=== PATIENT | male | born 1965 | race African-American/Black ===

== ENCOUNTER 2021-03-25 10:58 | Inpatient (IN) | payer OTHER ==
[2021-03-25 11:24] VITALS: BMI 21.4
[2021-03-25] MEDS ORDERED: MAGNESIUM CITRATE 300 ML BOTTLE PO PRN (12:03)
[2021-03-25] MEDS ORDERED: diazePAM 5 MG TABLET PO PRN (12:03)
[2021-03-25] MEDS ORDERED: ACETAMINOPHEN 325 MG TABLET (FP) PO PRN (12:03)
[2021-03-25] MEDS ORDERED: MAGNESIUM HYDROX 2400MG/30ML ORAL SUSPENSION 30 ML CUP PO PRN (12:03)
[2021-03-25] MEDS ORDERED: METHOCARBAMOL 500 MG TABLET PO PRN (12:03)
[2021-03-25] MEDS ORDERED: MAG HYDROX/AL HYDROX/SIMETH 30 ML UNIT-DOSE CUP PO PRN (12:03)
[2021-03-25] MEDS ORDERED: MENTHOL/PHENOL 1 EACH UD MM PRN (12:03)
[2021-03-25] MEDS ORDERED: BISMUTH SUBSALICYLATE 524 MG/30 ML PO PRN (12:03)
[2021-03-25] MEDS ORDERED: ONDANSETRON *ODT* 4 MG TABLET SL PRN (12:03)
[2021-03-25] MEDS: PRENATAL VITAMINS W/ FOLIC ACID TABLET (FP) PO SCH (13:25)
[2021-03-25] MEDS: diazePAM 5 MG TABLET PO SCH ×3 (13:26→22:35)
[2021-03-25] MEDS: NICOTINE POLACRILEX 4 MG GUM BUC PRN (13:30)
[2021-03-25] MEDS: hydrOXYzine PAMOATE 25 MG CAPSULE (FP) PO SCH ×3 (13:31→22:36)
[2021-03-25 17:19] LABS: HEMATOCRIT 38.7 % (35.4-49); HEMOGLOBIN 12.9 GM/dL (11.7-16.9); MCH 30.2 pg (25.7-33.7); MCHC 33.3 g/dl (32.0-35.9); MEAN CELL VOLUME 90.7 fl (80-96); MEAN PLT VOLUME 8.7 fl (7.5-11.1); PLATELET COUNT 263 10^3/uL (134-434); RBC 4.27 M/mm3 (4.00-5.60); RDW 13.3 % (11.9-15.9); WHITE BLOOD COUNT 12.2 K/mm3 (4.0-10.0)
[2021-03-25 17:23] LABS: CALCIUM 8.8 mg/dL (8.5-10.1)
[2021-03-25 17:24] LABS: ALBUMIN 3.9 g/dl (3.4-5.0); BLOOD UREA NITROGEN 21.8 mg/dL (7-18)
[2021-03-25 17:28] LABS: TOT PROT 7.2 g/dl (6.4-8.2)
[2021-03-25] MEDS: ACETAMINOPHEN 325 MG TABLET (FP) PO PRN (17:52)
[2021-03-25] MEDS: THIAMINE HCL 100 MG TABLET (FP) PO SCH (22:36)
[2021-03-25] MEDS: MELATONIN 5 MG TABLETS PO SCH (22:36)
[2021-03-26] MEDS: diazePAM 5 MG TABLET PO SCH ×4 (06:10→22:07)
[2021-03-26] MEDS: hydrOXYzine PAMOATE 25 MG CAPSULE (FP) PO SCH ×5 (06:11→22:05)
[2021-03-26] MEDS: PRENATAL VITAMINS W/ FOLIC ACID TABLET (FP) PO SCH (10:24)
[2021-03-26] MEDS: GABAPENTIN 300 MG CAPSULE PO SCH ×2 (13:25→22:05)
[2021-03-26] MEDS: IBUPROFEN 400 MG TABLET (FP) PO PRN ×2 (13:26→22:05)
[2021-03-26] MEDS: NICOTINE POLACRILEX 4 MG GUM BUC PRN ×3 (13:26→22:10)
[2021-03-26] MEDS: ACETAMINOPHEN 325 MG TABLET (FP) PO PRN (17:25)
[2021-03-26] MEDS: THIAMINE HCL 100 MG TABLET (FP) PO SCH (22:05)
[2021-03-26] MEDS: MELATONIN 5 MG TABLETS PO SCH (22:05)
[2021-03-26] MEDS: traZODone HCL 50 MG TABLET (FP) PO SCH (22:05)
[2021-03-27] MEDS: GABAPENTIN 300 MG CAPSULE PO SCH ×3 (05:02→22:12)
[2021-03-27] MEDS: diazePAM 5 MG TABLET PO SCH ×3 (05:02→22:12)
[2021-03-27] MEDS: hydrOXYzine PAMOATE 25 MG CAPSULE (FP) PO SCH ×5 (05:02→22:12)
[2021-03-27] MEDS ORDERED: MASKS NR ONE (05:04)
[2021-03-27] MEDS: IBUPROFEN 400 MG TABLET (FP) PO PRN ×2 (05:04→22:14)
[2021-03-27] MEDS: NICOTINE POLACRILEX 4 MG GUM BUC PRN ×4 (05:05→22:15)
[2021-03-27] MEDS: PRENATAL VITAMINS W/ FOLIC ACID TABLET (FP) PO SCH (10:27)
[2021-03-27 10:28] LABS: HEMATOCRIT 33.7 % (35.4-49); HEMOGLOBIN 11.1 GM/dL (11.7-16.9); MCH 30.4 pg (25.7-33.7); MEAN CELL VOLUME 92.1 fl (80-96); MEAN PLT VOLUME 8.7 fl (7.5-11.1); PLATELET COUNT 219 10^3/uL (134-434); RBC 3.66 M/mm3 (4.00-5.60); RDW 13.6 % (11.9-15.9); WHITE BLOOD COUNT 5.6 K/mm3 (4.0-10.0)
[2021-03-27] MEDS: traZODone HCL 50 MG TABLET (FP) PO SCH (22:12)
[2021-03-27] MEDS: MELATONIN 5 MG TABLETS PO SCH (22:12)
[2021-03-27] MEDS: THIAMINE HCL 100 MG TABLET (FP) PO SCH (22:12)
[2021-03-28] MEDS: NICOTINE POLACRILEX 4 MG GUM BUC PRN ×5 (05:29→22:08)
[2021-03-28] MEDS: diazePAM 5 MG TABLET PO SCH ×2 (05:29→17:47)
[2021-03-28] MEDS: GABAPENTIN 300 MG CAPSULE PO SCH ×3 (05:29→22:06)
[2021-03-28] MEDS: hydrOXYzine PAMOATE 25 MG CAPSULE (FP) PO SCH ×5 (05:40→22:06)
[2021-03-28] MEDS: PRENATAL VITAMINS W/ FOLIC ACID TABLET (FP) PO SCH (10:44)
[2021-03-28] MEDS: IBUPROFEN 400 MG TABLET (FP) PO PRN ×2 (10:47→22:07)
[2021-03-28] MEDS: traZODone HCL 50 MG TABLET (FP) PO SCH (22:06)
[2021-03-28] MEDS: MELATONIN 5 MG TABLETS PO SCH (22:06)
[2021-03-28] MEDS: THIAMINE HCL 100 MG TABLET (FP) PO SCH (22:06)
[2021-03-29] MEDS: NICOTINE POLACRILEX 4 MG GUM BUC PRN (04:59)
[2021-03-29] MEDS: IBUPROFEN 400 MG TABLET (FP) PO PRN (04:59)
[2021-03-29] MEDS: GABAPENTIN 300 MG CAPSULE PO SCH (05:00)
[2021-03-29] MEDS: hydrOXYzine PAMOATE 25 MG CAPSULE (FP) PO SCH (05:14)
[2021-03-29] MEDS ORDERED: diazePAM 5 MG TABLET PO ONE (06:00)
[2021-03-29 08:48] VITALS: BP 127/76; PULSE 73; TEMP 96.9
== END 2021-03-29 09:23 | disposition home or self-care (01) | DRG 774 ==
LOC: YASAS 10:58 → Y3N 12:14
PROVIDERS: ADMIT Allergy & Immunology; ATTEND Allergy & Immunology
PROC: HZ2ZZZZ Detoxification Services for Substance Abuse Treatment (ICD-10-PCS; principal; 2021-03-25)
DX: F10.230 Alcohol dependence with withdrawal, uncomplicated (principal); F14.20 Cocaine dependence, uncomplicated; F17.220 Nicotine dependence, chewing tobacco, uncomplicated; F25.9 Schizoaffective disorder, unspecified; F31.9 Bipolar disorder, unspecified; F43.10 Post-traumatic stress disorder, unspecified; G40.909 Epilepsy, unspecified, not intractable, without status epilepticus; G62.9 Polyneuropathy, unspecified; M17.0 Bilateral primary osteoarthritis of knee; M54.50 Low back pain, unspecified; G89.29 Other chronic pain; Z62.810 Personal history of physical and sexual abuse in childhood; Z98.890 Other specified postprocedural states; Z88.8 Allergy status to other drugs, medicaments and biological substances; Z91.013 Allergy to seafood
CPT/HCPCS: 36415; 80053; 84520; 85027; 86780; 93005; 93010; C9803; Q0162; U0003; U0005

== ENCOUNTER 2021-04-25 15:35 | Inpatient (IN) | payer OTHER ==
[2021-04-25] MEDS ORDERED: MAGNESIUM CITRATE 300 ML BOTTLE PO PRN (17:37)
[2021-04-25] MEDS ORDERED: LOPERAMIDE HCL 2 MG CAPSULE PO PRN (17:37)
[2021-04-25] MEDS ORDERED: P-EPHED 60MG/TRIPROLIDI 2.5MG TABLET PO PRN (17:37)
[2021-04-25] MEDS ORDERED: guaiFENesin 200 MG/10 ML 10 ML UNIT-DOSE CUPS PO PRN (17:37)
[2021-04-25] MEDS ORDERED: MAG HYDROX/AL HYDROX/SIMETH 30 ML UNIT-DOSE CUP PO PRN (17:37)
[2021-04-25] MEDS ORDERED: MAGNESIUM HYDROX 2400MG/30ML ORAL SUSPENSION 30 ML CUP PO PRN (17:37)
[2021-04-25] MEDS ORDERED: NICOTINE 10 MG CARTRIDGE (INHALER) IH PRN (17:37)
[2021-04-25] MEDS ORDERED: hydrOXYzine PAMOATE 25 MG CAPSULE (FP) PO PRN (17:37)
[2021-04-25 18:27] VITALS: BMI 25.8
[2021-04-25] MEDS: NICOTINE POLACRILEX 2 MG GUM BUC PRN (20:49)
[2021-04-25] MEDS: THIAMINE HCL 100 MG TABLET (FP) PO SCH (21:30)
[2021-04-25] MEDS: GABAPENTIN 300 MG CAPSULE PO SCH (21:31)
[2021-04-25] MEDS: IBUPROFEN 400 MG TABLET (FP) PO PRN (21:31)
[2021-04-25] MEDS ORDERED: MELATONIN 5 MG TABLETS PO SCH (22:00)
[2021-04-26] MEDS: GABAPENTIN 300 MG CAPSULE PO SCH ×3 (06:45→21:29)
[2021-04-26] MEDS: IBUPROFEN 400 MG TABLET (FP) PO PRN ×2 (06:46→21:28)
[2021-04-26] MEDS: NICOTINE 7 MG/24 HOURS TOPICAL PATCH TD SCH (10:08)
[2021-04-26] MEDS: NICOTINE POLACRILEX 2 MG GUM BUC PRN ×4 (10:08→21:29)
[2021-04-26] MEDS: PRENATAL VITAMINS W/ FOLIC ACID TABLET (FP) PO SCH (10:08)
[2021-04-26 10:30] LABS: PH,URINE 5.5 (5.0-8.0); URINE APPEARANCE CLEAR; URINE BILIRUBIN NEGATIVE (NEGATIVE); URINE COLOR YELLOW; URINE GLUCOSE (UA) NEGATIVE (NEGATIVE); URINE KETONE NEGATIVE (NEGATIVE); URINE LEUK ESTERASE NEGATIVE (NEGATIVE); URINE NITRITE NEGATIVE (NEGATIVE); URINE PROTEIN NEGATIVE (NEGATIVE); URINE UROBILINOGEN 0.2 mg/dL (0.2-1.0)
[2021-04-26 10:32] LABS: HEMATOCRIT 40.3 % (35.4-49); HEMOGLOBIN 13.7 GM/dL (11.7-16.9); MCH 30.4 pg (25.7-33.7); MEAN CELL VOLUME 89.2 fl (80-96); MEAN PLT VOLUME 8.6 fl (7.5-11.1); PLATELET COUNT 195 10^3/uL (134-434); RBC 4.52 M/mm3 (4.00-5.60)
[2021-04-26 10:34] LABS: CALCIUM 8.7 mg/dL (8.5-10.1)
[2021-04-26 10:35] LABS: ALBUMIN 4.1 g/dl (3.4-5.0); BLOOD UREA NITROGEN 26.1 mg/dL (7-18)
[2021-04-26 10:39] LABS: BILIRUBIN,TOTAL 0.6 mg/dL (0.2-1); TOT PROT 7.2 g/dl (6.4-8.2)
[2021-04-26] MEDS: THIAMINE HCL 100 MG TABLET (FP) PO SCH (21:27)
[2021-04-26] MEDS: QUEtiapine FUMARATE 50 MG TABLET PO PRN (21:28)
[2021-04-26] MEDS: traZODone HCL 100 MG TABLET (FP) PO SCH (21:28)
[2021-04-27] MEDS: GABAPENTIN 300 MG CAPSULE PO SCH ×3 (06:41→21:15)
[2021-04-27] MEDS: IBUPROFEN 400 MG TABLET (FP) PO PRN ×3 (06:42→21:18)
[2021-04-27] MEDS: NICOTINE POLACRILEX 2 MG GUM BUC PRN ×7 (06:43→21:19)
[2021-04-27] MEDS: NICOTINE 7 MG/24 HOURS TOPICAL PATCH TD SCH (09:47)
[2021-04-27] MEDS: PRENATAL VITAMINS W/ FOLIC ACID TABLET (FP) PO SCH (09:47)
[2021-04-27] MEDS: LIDOCAINE 5% TOPICAL PATCH TP SCH (14:28)
[2021-04-27] MEDS: THIAMINE HCL 100 MG TABLET (FP) PO SCH (21:15)
[2021-04-27] MEDS: traZODone HCL 100 MG TABLET (FP) PO SCH (21:15)
[2021-04-27] MEDS: LIDOCAINE PATCH REMOVAL MC SCH (21:16)
[2021-04-27] MEDS: QUEtiapine FUMARATE 50 MG TABLET PO PRN (21:18)
[2021-04-27] MEDS: METHOCARBAMOL 500 MG TABLET PO PRN (21:18)
[2021-04-28] MEDS: METHOCARBAMOL 500 MG TABLET PO PRN ×3 (06:29→21:57)
[2021-04-28] MEDS: IBUPROFEN 400 MG TABLET (FP) PO PRN ×2 (06:30→13:14)
[2021-04-28] MEDS: GABAPENTIN 300 MG CAPSULE PO SCH ×3 (06:30→21:56)
[2021-04-28] MEDS: NICOTINE POLACRILEX 2 MG GUM BUC PRN ×5 (06:31→18:20)
[2021-04-28] MEDS: PRENATAL VITAMINS W/ FOLIC ACID TABLET (FP) PO SCH (10:03)
[2021-04-28] MEDS: NICOTINE 7 MG/24 HOURS TOPICAL PATCH TD SCH (10:03)
[2021-04-28] MEDS: LIDOCAINE 5% TOPICAL PATCH TP SCH (10:04)
[2021-04-28] MEDS: traZODone HCL 100 MG TABLET (FP) PO SCH (21:57)
[2021-04-28] MEDS: QUEtiapine FUMARATE 50 MG TABLET PO PRN (21:58)
[2021-04-28] MEDS: LIDOCAINE PATCH REMOVAL MC SCH (21:59)
[2021-04-28] MEDS: THIAMINE HCL 100 MG TABLET (FP) PO SCH (21:59)
[2021-04-29] MEDS: GABAPENTIN 300 MG CAPSULE PO SCH ×3 (06:18→21:09)
[2021-04-29] MEDS: METHOCARBAMOL 500 MG TABLET PO PRN ×3 (06:19→21:10)
[2021-04-29] MEDS: NICOTINE POLACRILEX 2 MG GUM BUC PRN ×4 (06:20→21:11)
[2021-04-29] MEDS: IBUPROFEN 400 MG TABLET (FP) PO PRN ×2 (06:20→13:12)
[2021-04-29] MEDS ORDERED: MODERNA COVID-19 VACC,MRNA/PF 100 MCG/0.5 ML IM ONE (10:00)
[2021-04-29] MEDS: PRENATAL VITAMINS W/ FOLIC ACID TABLET (FP) PO SCH (10:39)
[2021-04-29] MEDS: LIDOCAINE 5% TOPICAL PATCH TP SCH (10:40)
[2021-04-29] MEDS: NICOTINE 7 MG/24 HOURS TOPICAL PATCH TD SCH (10:40)
[2021-04-29] MEDS: traZODone HCL 100 MG TABLET (FP) PO SCH (21:09)
[2021-04-29] MEDS: QUEtiapine FUMARATE 50 MG TABLET PO PRN (21:09)
[2021-04-29] MEDS: THIAMINE HCL 100 MG TABLET (FP) PO SCH (21:09)
[2021-04-29] MEDS: METHYL SALICYLATE/MENTHOL OINT 30 GM TUBE TP SCH (21:10)
[2021-04-29] MEDS: LIDOCAINE PATCH REMOVAL MC SCH (21:11)
[2021-04-30] MEDS: GABAPENTIN 300 MG CAPSULE PO SCH ×3 (06:31→21:31)
[2021-04-30] MEDS: METHOCARBAMOL 500 MG TABLET PO PRN ×3 (06:32→21:31)
[2021-04-30] MEDS: NICOTINE POLACRILEX 2 MG GUM BUC PRN ×6 (06:32→21:33)
[2021-04-30] MEDS: IBUPROFEN 400 MG TABLET (FP) PO PRN ×3 (06:33→21:32)
[2021-04-30] MEDS: LIDOCAINE 5% TOPICAL PATCH TP SCH (09:45)
[2021-04-30] MEDS: PRENATAL VITAMINS W/ FOLIC ACID TABLET (FP) PO SCH (09:45)
[2021-04-30] MEDS: NICOTINE 7 MG/24 HOURS TOPICAL PATCH TD SCH (09:45)
[2021-04-30] MEDS: traZODone HCL 100 MG TABLET (FP) PO SCH (21:31)
[2021-04-30] MEDS: QUEtiapine FUMARATE 50 MG TABLET PO PRN (21:31)
[2021-04-30] MEDS: METHYL SALICYLATE/MENTHOL OINT 30 GM TUBE TP SCH (21:31)
[2021-04-30] MEDS: THIAMINE HCL 100 MG TABLET (FP) PO SCH (21:31)
[2021-04-30] MEDS: LIDOCAINE PATCH REMOVAL MC SCH (21:33)
[2021-05-01] MEDS: GABAPENTIN 300 MG CAPSULE PO SCH ×3 (06:46→21:03)
[2021-05-01] MEDS: IBUPROFEN 400 MG TABLET (FP) PO PRN ×2 (10:23→21:04)
[2021-05-01] MEDS: METHOCARBAMOL 500 MG TABLET PO PRN ×3 (10:23→21:03)
[2021-05-01] MEDS: LIDOCAINE 5% TOPICAL PATCH TP SCH (10:25)
[2021-05-01] MEDS: NICOTINE POLACRILEX 2 MG GUM BUC PRN ×4 (10:31→21:04)
[2021-05-01] MEDS: NICOTINE 7 MG/24 HOURS TOPICAL PATCH TD SCH (12:41)
[2021-05-01] MEDS: PRENATAL VITAMINS W/ FOLIC ACID TABLET (FP) PO SCH (12:41)
[2021-05-01] MEDS: ACETAMINOPHEN 325 MG TABLET (FP) PO PRN (15:00)
[2021-05-01] MEDS: QUEtiapine FUMARATE 50 MG TABLET PO PRN (21:03)
[2021-05-01] MEDS: THIAMINE HCL 100 MG TABLET (FP) PO SCH (21:03)
[2021-05-01] MEDS: traZODone HCL 100 MG TABLET (FP) PO SCH (21:03)
[2021-05-01] MEDS: LIDOCAINE PATCH REMOVAL MC SCH (21:04)
[2021-05-01] MEDS: METHYL SALICYLATE/MENTHOL OINT 30 GM TUBE TP SCH (21:04)
[2021-05-02] MEDS: METHOCARBAMOL 500 MG TABLET PO PRN ×3 (06:38→21:45)
[2021-05-02] MEDS: GABAPENTIN 300 MG CAPSULE PO SCH ×3 (06:39→21:41)
[2021-05-02] MEDS: IBUPROFEN 400 MG TABLET (FP) PO PRN ×2 (06:39→14:04)
[2021-05-02] MEDS: NICOTINE POLACRILEX 2 MG GUM BUC PRN ×3 (06:39→16:54)
[2021-05-02] MEDS: NICOTINE 7 MG/24 HOURS TOPICAL PATCH TD SCH (09:27)
[2021-05-02] MEDS: LIDOCAINE 5% TOPICAL PATCH TP SCH (09:28)
[2021-05-02] MEDS: PRENATAL VITAMINS W/ FOLIC ACID TABLET (FP) PO SCH (09:28)
[2021-05-02] MEDS: THIAMINE HCL 100 MG TABLET (FP) PO SCH (21:41)
[2021-05-02] MEDS: METHYL SALICYLATE/MENTHOL OINT 30 GM TUBE TP SCH (21:41)
[2021-05-02] MEDS: traZODone HCL 100 MG TABLET (FP) PO SCH (21:41)
[2021-05-02] MEDS: LIDOCAINE PATCH REMOVAL MC SCH (21:41)
[2021-05-02] MEDS: QUEtiapine FUMARATE 50 MG TABLET PO PRN (21:43)
[2021-05-03] MEDS: IBUPROFEN 400 MG TABLET (FP) PO PRN (06:55)
[2021-05-03] MEDS: METHOCARBAMOL 500 MG TABLET PO PRN ×2 (06:56→21:33)
[2021-05-03] MEDS: NICOTINE POLACRILEX 2 MG GUM BUC PRN ×4 (06:56→21:34)
[2021-05-03] MEDS: GABAPENTIN 300 MG CAPSULE PO SCH ×3 (06:59→21:33)
[2021-05-03] MEDS: PRENATAL VITAMINS W/ FOLIC ACID TABLET (FP) PO SCH (09:56)
[2021-05-03] MEDS: NICOTINE 7 MG/24 HOURS TOPICAL PATCH TD SCH (09:56)
[2021-05-03] MEDS: LIDOCAINE 5% TOPICAL PATCH TP SCH (09:56)
[2021-05-03] MEDS: ACETAMINOPHEN 325 MG TABLET (FP) PO PRN (13:46)
[2021-05-03] MEDS: METHYL SALICYLATE/MENTHOL OINT 30 GM TUBE TP SCH (21:32)
[2021-05-03] MEDS: LIDOCAINE PATCH REMOVAL MC SCH (21:33)
[2021-05-03] MEDS: QUEtiapine FUMARATE 50 MG TABLET PO PRN (21:33)
[2021-05-03] MEDS: traZODone HCL 100 MG TABLET (FP) PO SCH (21:33)
[2021-05-03] MEDS: THIAMINE HCL 100 MG TABLET (FP) PO SCH (21:34)
[2021-05-04] MEDS: GABAPENTIN 300 MG CAPSULE PO SCH ×3 (07:36→21:01)
[2021-05-04] MEDS: LIDOCAINE 5% TOPICAL PATCH TP SCH (10:00)
[2021-05-04] MEDS: NICOTINE POLACRILEX 2 MG GUM BUC PRN ×6 (10:03→21:34)
[2021-05-04] MEDS: NICOTINE 7 MG/24 HOURS TOPICAL PATCH TD SCH (10:03)
[2021-05-04] MEDS: PRENATAL VITAMINS W/ FOLIC ACID TABLET (FP) PO SCH (10:05)
[2021-05-04] MEDS: METHOCARBAMOL 500 MG TABLET PO PRN ×2 (10:06→21:01)
[2021-05-04] MEDS: IBUPROFEN 400 MG TABLET (FP) PO PRN (10:06)
[2021-05-04] MEDS: ACETAMINOPHEN 325 MG TABLET (FP) PO PRN (13:39)
[2021-05-04] MEDS: QUEtiapine FUMARATE 50 MG TABLET PO PRN (21:01)
[2021-05-04] MEDS: THIAMINE HCL 100 MG TABLET (FP) PO SCH (21:01)
[2021-05-04] MEDS: traZODone HCL 100 MG TABLET (FP) PO SCH (21:01)
[2021-05-04] MEDS: LIDOCAINE PATCH REMOVAL MC SCH (21:02)
[2021-05-04] MEDS: METHYL SALICYLATE/MENTHOL OINT 30 GM TUBE TP SCH (21:02)
[2021-05-05] MEDS: GABAPENTIN 300 MG CAPSULE PO SCH ×3 (08:06→21:30)
[2021-05-05] MEDS: PRENATAL VITAMINS W/ FOLIC ACID TABLET (FP) PO SCH (10:12)
[2021-05-05] MEDS: METHOCARBAMOL 500 MG TABLET PO PRN ×2 (10:21→21:30)
[2021-05-05] MEDS: NICOTINE POLACRILEX 2 MG GUM BUC PRN ×4 (10:21→21:32)
[2021-05-05] MEDS: LIDOCAINE 5% TOPICAL PATCH TP SCH (10:23)
[2021-05-05] MEDS: NICOTINE 7 MG/24 HOURS TOPICAL PATCH TD SCH (10:23)
[2021-05-05] MEDS: IBUPROFEN 400 MG TABLET (FP) PO PRN (13:54)
[2021-05-05] MEDS: METHYL SALICYLATE/MENTHOL OINT 30 GM TUBE TP SCH (21:27)
[2021-05-05] MEDS: THIAMINE HCL 100 MG TABLET (FP) PO SCH (21:27)
[2021-05-05] MEDS: LIDOCAINE PATCH REMOVAL MC SCH (21:27)
[2021-05-05] MEDS: traZODone HCL 100 MG TABLET (FP) PO SCH (21:30)
[2021-05-05] MEDS: QUEtiapine FUMARATE 50 MG TABLET PO PRN (21:30)
[2021-05-06] MEDS: GABAPENTIN 300 MG CAPSULE PO SCH ×3 (06:28→21:02)
[2021-05-06] MEDS: LIDOCAINE 5% TOPICAL PATCH TP SCH (11:08)
[2021-05-06] MEDS: NICOTINE 7 MG/24 HOURS TOPICAL PATCH TD SCH (11:09)
[2021-05-06] MEDS: PRENATAL VITAMINS W/ FOLIC ACID TABLET (FP) PO SCH (11:10)
[2021-05-06] MEDS: IBUPROFEN 400 MG TABLET (FP) PO PRN (11:14)
[2021-05-06] MEDS: METHOCARBAMOL 500 MG TABLET PO PRN (11:14)
[2021-05-06] MEDS: NICOTINE POLACRILEX 2 MG GUM BUC PRN ×4 (13:48→21:04)
[2021-05-06] MEDS: traZODone HCL 100 MG TABLET (FP) PO SCH (21:01)
[2021-05-06] MEDS: METHYL SALICYLATE/MENTHOL OINT 30 GM TUBE TP SCH (21:01)
[2021-05-06] MEDS: QUEtiapine FUMARATE 50 MG TABLET PO PRN (21:02)
[2021-05-06] MEDS: LIDOCAINE PATCH REMOVAL MC SCH (21:02)
[2021-05-06] MEDS: THIAMINE HCL 100 MG TABLET (FP) PO SCH (21:03)
[2021-05-07] MEDS: GABAPENTIN 300 MG CAPSULE PO SCH ×3 (06:21→21:13)
[2021-05-07] MEDS: LIDOCAINE 5% TOPICAL PATCH TP SCH (09:39)
[2021-05-07] MEDS: IBUPROFEN 400 MG TABLET (FP) PO PRN ×2 (09:41→21:14)
[2021-05-07] MEDS: METHOCARBAMOL 500 MG TABLET PO PRN ×2 (09:41→21:13)
[2021-05-07] MEDS: PRENATAL VITAMINS W/ FOLIC ACID TABLET (FP) PO SCH (09:44)
[2021-05-07] MEDS: NICOTINE 7 MG/24 HOURS TOPICAL PATCH TD SCH (09:44)
[2021-05-07] MEDS: NICOTINE POLACRILEX 2 MG GUM BUC PRN ×5 (11:46→21:15)
[2021-05-07] MEDS: METHYL SALICYLATE/MENTHOL OINT 30 GM TUBE TP SCH (21:13)
[2021-05-07] MEDS: traZODone HCL 100 MG TABLET (FP) PO SCH (21:13)
[2021-05-07] MEDS: QUEtiapine FUMARATE 50 MG TABLET PO PRN (21:13)
[2021-05-07] MEDS: THIAMINE HCL 100 MG TABLET (FP) PO SCH (21:13)
[2021-05-07] MEDS: LIDOCAINE PATCH REMOVAL MC SCH (21:13)
[2021-05-08] MEDS: GABAPENTIN 300 MG CAPSULE PO SCH ×3 (06:26→21:28)
[2021-05-08] MEDS: IBUPROFEN 400 MG TABLET (FP) PO PRN ×2 (06:27→21:30)
[2021-05-08] MEDS: METHOCARBAMOL 500 MG TABLET PO PRN (06:28)
[2021-05-08] MEDS: LIDOCAINE 5% TOPICAL PATCH TP SCH (09:59)
[2021-05-08] MEDS: NICOTINE 7 MG/24 HOURS TOPICAL PATCH TD SCH (10:01)
[2021-05-08] MEDS: PRENATAL VITAMINS W/ FOLIC ACID TABLET (FP) PO SCH (10:02)
[2021-05-08] MEDS: NICOTINE POLACRILEX 2 MG GUM BUC PRN ×3 (10:04→14:19)
[2021-05-08] MEDS: traZODone HCL 100 MG TABLET (FP) PO SCH (21:28)
[2021-05-08] MEDS: QUEtiapine FUMARATE 50 MG TABLET PO PRN (21:30)
[2021-05-08] MEDS: LIDOCAINE PATCH REMOVAL MC SCH (21:31)
[2021-05-08] MEDS: METHYL SALICYLATE/MENTHOL OINT 30 GM TUBE TP SCH (21:31)
[2021-05-08] MEDS: THIAMINE HCL 100 MG TABLET (FP) PO SCH (21:32)
[2021-05-09] MEDS: IBUPROFEN 400 MG TABLET (FP) PO PRN (06:35)
[2021-05-09] MEDS: METHOCARBAMOL 500 MG TABLET PO PRN (06:35)
[2021-05-09] MEDS: GABAPENTIN 300 MG CAPSULE PO SCH (06:35)
[2021-05-09 06:46] VITALS: BP 116/62; PULSE 77; TEMP 98.6
== END 2021-05-09 09:20 | disposition home or self-care (01) | DRG 772 ==
LOC: YASAS 15:35 → Y3W 17:53
PROVIDERS: ADMIT Allergy & Immunology; ATTEND Allergy & Immunology
PROC: HZ42ZZZ Group Counseling for Substance Abuse Treatment, Cognitive-Behavioral (ICD-10-PCS; principal; 2021-04-25)
DX: F10.20 Alcohol dependence, uncomplicated (principal); F14.20 Cocaine dependence, uncomplicated; F13.20 Sedative, hypnotic or anxiolytic dependence, uncomplicated; F19.282 Other psychoactive substance dependence with psychoactive substance-induced sleep disorder; F19.24 Other psychoactive substance dependence with psychoactive substance-induced mood disorder; F31.9 Bipolar disorder, unspecified; F43.10 Post-traumatic stress disorder, unspecified; M17.11 Unilateral primary osteoarthritis, right knee; M19.011 Primary osteoarthritis, right shoulder; M54.50 Low back pain, unspecified; G89.29 Other chronic pain; Z62.810 Personal history of physical and sexual abuse in childhood; Z88.8 Allergy status to other drugs, medicaments and biological substances; Z91.013 Allergy to seafood; Z87.891 Personal history of nicotine dependence
CPT/HCPCS: 0011A; 36415; 80053; 81003; 85027; 86708; 86780; 86803; 87811; 91301; C9803; U0003; U0005

== ENCOUNTER 2021-06-19 13:01 | Inpatient (IN) | payer OTHER ==
[2021-06-19] MEDS ORDERED: ACETAMINOPHEN 325 MG TABLET (FP) PO PRN (15:29)
[2021-06-19] MEDS ORDERED: MAG HYDROX/AL HYDROX/SIMETH 30 ML UNIT-DOSE CUP PO PRN (15:29)
[2021-06-19] MEDS ORDERED: BISMUTH SUBSALICYLATE 524 MG/30 ML PO PRN (15:29)
[2021-06-19] MEDS ORDERED: ONDANSETRON *ODT* 4 MG TABLET SL PRN (15:29)
[2021-06-19] MEDS ORDERED: NICOTINE 10 MG CARTRIDGE (INHALER) IH PRN (15:29)
[2021-06-19] MEDS ORDERED: MENTHOL/PHENOL 1 EACH UD MM PRN (15:29)
[2021-06-19] MEDS ORDERED: MAGNESIUM HYDROX 2400MG/30ML ORAL SUSPENSION 30 ML CUP PO PRN (15:29)
[2021-06-19] MEDS ORDERED: MAGNESIUM CITRATE 300 ML BOTTLE PO PRN (15:29)
[2021-06-19] MEDS ORDERED: chlordiazePOXIDE HCL 25 MG CAPSULE PO PRN (15:29)
[2021-06-19] MEDS ORDERED: IBUPROFEN 400 MG TABLET (FP) PO PRN (15:29)
[2021-06-19] MEDS ORDERED: METHOCARBAMOL 500 MG TABLET PO PRN (15:29)
[2021-06-19 16:00] VITALS: BMI 30.4
[2021-06-19] MEDS: THIAMINE HCL 100 MG TABLET (FP) PO SCH (22:06)
[2021-06-19] MEDS: MELATONIN 5 MG TABLETS PO SCH (22:06)
[2021-06-19] MEDS: chlordiazePOXIDE HCL 25 MG CAPSULE PO SCH (22:06)
[2021-06-19] MEDS: ACETAMINOPHEN 325 MG TABLET (FP) PO PRN (22:08)
[2021-06-20] MEDS: chlordiazePOXIDE HCL 25 MG CAPSULE PO SCH ×4 (07:03→22:06)
[2021-06-20] MEDS: PRENATAL VITAMINS W/ FOLIC ACID TABLET (FP) PO SCH (11:14)
[2021-06-20 13:41] LABS: HEMATOCRIT 40.8 % (35.4-49); HEMOGLOBIN 13.6 GM/dL (11.7-16.9); MCH 29.7 pg (25.7-33.7); MCHC 33.3 g/dl (32.0-35.9); MEAN CELL VOLUME 89.1 fl (80-96); PLATELET COUNT 173 10^3/uL (134-434); RBC 4.59 M/mm3 (4.00-5.60); RDW 14.5 % (11.9-15.9); WHITE BLOOD COUNT 7.2 K/mm3 (4.0-10.0)
[2021-06-20 14:12] LABS: ALBUMIN 3.7 g/dl (3.4-5.0); CALCIUM 8.4 mg/dL (8.5-10.1)
[2021-06-20 14:13] LABS: BLOOD UREA NITROGEN 26.5 mg/dL (7-18)
[2021-06-20 14:17] LABS: BILIRUBIN,TOTAL 0.7 mg/dL (0.2-1); TOT PROT 6.4 g/dl (6.4-8.2)
[2021-06-20] MEDS ORDERED: NICOTINE POLACRILEX 2 MG GUM BUC PRN (21:33)
[2021-06-20] MEDS ORDERED: QUEtiapine FUMARATE 100 MG TABLET (FP) PO SCH (22:00)
[2021-06-20] MEDS: MELATONIN 5 MG TABLETS PO SCH (22:05)
[2021-06-20] MEDS: THIAMINE HCL 100 MG TABLET (FP) PO SCH ×2 (22:06→22:11)
[2021-06-20] MEDS: ACETAMINOPHEN 325 MG TABLET (FP) PO PRN (22:09)
[2021-06-21] MEDS: chlordiazePOXIDE HCL 25 MG CAPSULE PO SCH ×2 (05:44→10:38)
[2021-06-21 09:03] VITALS: BP 103/60; PULSE 73; TEMP 98
[2021-06-21] MEDS: PRENATAL VITAMINS W/ FOLIC ACID TABLET (FP) PO SCH (10:38)
[2021-06-22] MEDS ORDERED: chlordiazePOXIDE HCL 10 MG CAPSULE PO PRN
[2021-06-22] MEDS ORDERED: chlordiazePOXIDE HCL 10 MG CAPSULE PO SCH (05:00)
[2021-06-23] MEDS ORDERED: chlordiazePOXIDE HCL 10 MG CAPSULE PO SCH (05:00)
[2021-06-24] MEDS ORDERED: chlordiazePOXIDE HCL 10 MG CAPSULE PO ONE (05:00)
== END 2021-06-21 11:07 | disposition left against medical advice (07) | DRG 770 ==
LOC: YASAS 13:01 → Y6N 19:43
PROVIDERS: ADMIT Allergy & Immunology; ATTEND Allergy & Immunology
PROC: HZ2ZZZZ Detoxification Services for Substance Abuse Treatment (ICD-10-PCS; principal; 2021-06-19)
DX: F10.230 Alcohol dependence with withdrawal, uncomplicated (principal); F14.20 Cocaine dependence, uncomplicated; F13.20 Sedative, hypnotic or anxiolytic dependence, uncomplicated; F17.290 Nicotine dependence, other tobacco product, uncomplicated; F19.282 Other psychoactive substance dependence with psychoactive substance-induced sleep disorder; F19.24 Other psychoactive substance dependence with psychoactive substance-induced mood disorder; F31.9 Bipolar disorder, unspecified; G25.9 Extrapyramidal and movement disorder, unspecified; G62.9 Polyneuropathy, unspecified; M17.0 Bilateral primary osteoarthritis of knee; M54.50 Low back pain, unspecified; G89.29 Other chronic pain; Z62.810 Personal history of physical and sexual abuse in childhood; Z91.51 Personal history of suicidal behavior; Z59.00 Homelessness unspecified; Z88.8 Allergy status to other drugs, medicaments and biological substances; Z91.013 Allergy to seafood
CPT/HCPCS: 36415; 80053; 85027; 86780; C9803; U0003; U0005

== ENCOUNTER 2021-07-10 12:06 | Inpatient (IN) | payer OTHER ==
[2021-07-10] MEDS ORDERED: LOPERAMIDE HCL 2 MG CAPSULE PO PRN (12:28)
[2021-07-10] MEDS ORDERED: chlordiazePOXIDE HCL 25 MG CAPSULE PO PRN (12:28)
[2021-07-10] MEDS ORDERED: ONDANSETRON *ODT* 4 MG TABLET SL PRN (12:28)
[2021-07-10] MEDS ORDERED: NICOTINE 10 MG CARTRIDGE (INHALER) IH PRN (12:28)
[2021-07-10] MEDS ORDERED: IBUPROFEN 400 MG TABLET (FP) PO PRN (12:28)
[2021-07-10] MEDS ORDERED: MENTHOL/PHENOL 1 EACH UD MM PRN (12:28)
[2021-07-10] MEDS ORDERED: MAG HYDROX/AL HYDROX/SIMETH 30 ML UNIT-DOSE CUP PO PRN (12:28)
[2021-07-10] MEDS ORDERED: ACETAMINOPHEN 325 MG TABLET (FP) PO PRN (12:28)
[2021-07-10] MEDS ORDERED: MAGNESIUM CITRATE 300 ML BOTTLE PO PRN (12:28)
[2021-07-10] MEDS ORDERED: BISMUTH SUBSALICYLATE 524 MG/30 ML PO PRN (12:28)
[2021-07-10] MEDS ORDERED: MAGNESIUM HYDROX 2400MG/30ML ORAL SUSPENSION 30 ML CUP PO PRN (12:28)
[2021-07-10 12:37] VITALS: BMI 26.4
[2021-07-10] MEDS: chlordiazePOXIDE HCL 25 MG CAPSULE PO SCH ×3 (14:21→22:39)
[2021-07-10] MEDS: hydrOXYzine PAMOATE 25 MG CAPSULE (FP) PO SCH ×3 (14:21→22:39)
[2021-07-10] MEDS: ACETAMINOPHEN 325 MG TABLET (FP) PO PRN (14:22)
[2021-07-10] MEDS: PRENATAL VITAMINS W/ FOLIC ACID TABLET (FP) PO SCH (14:22)
[2021-07-10 17:01] LABS: HEMATOCRIT 36.2 % (35.4-49); HEMOGLOBIN 12.2 GM/dL (11.7-16.9); MCHC 33.7 g/dl (32.0-35.9); MEAN CELL VOLUME 88.9 fl (80-96); MEAN PLT VOLUME 8.3 fl (7.5-11.1); PLATELET COUNT 267 10^3/uL (134-434); RBC 4.07 M/mm3 (4.00-5.60); RDW 15.2 % (11.9-15.9); WHITE BLOOD COUNT 12.2 K/mm3 (4.0-10.0)
[2021-07-10 17:04] LABS: CALCIUM 8.9 mg/dL (8.5-10.1)
[2021-07-10 17:10] LABS: BILIRUBIN,TOTAL 0.4 mg/dL (0.2-1); TOT PROT 6.9 g/dl (6.4-8.2)
[2021-07-10] MEDS: GABAPENTIN 300 MG CAPSULE PO SCH ×2 (18:28→22:39)
[2021-07-10] MEDS ORDERED: GABAPENTIN 300 MG CAPSULE PO SCH (22:00)
[2021-07-10] MEDS ORDERED: MELATONIN 5 MG TABLETS PO SCH (22:00)
[2021-07-10] MEDS ORDERED: TICAGRELOR 90 MG TABLET PO ONE (22:00)
[2021-07-10] MEDS: THIAMINE HCL 100 MG TABLET (FP) PO SCH (22:39)
[2021-07-10] MEDS: QUEtiapine FUMARATE 100 MG TABLET (FP) PO SCH (22:39)
[2021-07-10] MEDS: ATORVASTATIN CA 40 MG TABLET (FP) PO SCH (22:39)
[2021-07-11] MEDS: GABAPENTIN 300 MG CAPSULE PO SCH ×3 (06:18→22:10)
[2021-07-11] MEDS: chlordiazePOXIDE HCL 25 MG CAPSULE PO SCH ×4 (06:18→22:17)
[2021-07-11] MEDS: hydrOXYzine PAMOATE 25 MG CAPSULE (FP) PO SCH ×5 (06:19→22:10)
[2021-07-11] MEDS: ASPIRIN 81 MG CHEWABLE TABLETS PO SCH (10:32)
[2021-07-11] MEDS: METHOCARBAMOL 500 MG TABLET PO PRN (10:32)
[2021-07-11] MEDS: PRENATAL VITAMINS W/ FOLIC ACID TABLET (FP) PO SCH (10:32)
[2021-07-11] MEDS: NICOTINE POLACRILEX 2 MG GUM BUC PRN ×2 (10:37→22:11)
[2021-07-11] MEDS: metoPROLOL SUCCINATE 25 MG TAB.SR.24H (FP) PO SCH (13:05)
[2021-07-11] MEDS: LOSARTAN POTASSIUM 25 MG TABLET PO SCH (13:05)
[2021-07-11] MEDS: ISOSORBIDE MONONITRATE 30 MG TAB.SR.24H (FP) PO SCH (13:07)
[2021-07-11] MEDS: LIDOCAINE 5% TOPICAL PATCH TP SCH (14:13)
[2021-07-11] MEDS ORDERED: guaiFENesin 200 MG/10 ML 10 ML UNIT-DOSE CUPS PO PRN (16:52)
[2021-07-11] MEDS: ACETAMINOPHEN 325 MG TABLET (FP) PO PRN (17:20)
[2021-07-11] MEDS: THIAMINE HCL 100 MG TABLET (FP) PO SCH (22:10)
[2021-07-11] MEDS: QUEtiapine FUMARATE 100 MG TABLET (FP) PO SCH (22:10)
[2021-07-11] MEDS: LIDOCAINE PATCH REMOVAL MC SCH (22:10)
[2021-07-11] MEDS: ATORVASTATIN CA 40 MG TABLET (FP) PO SCH (22:10)
[2021-07-12] MEDS: GABAPENTIN 300 MG CAPSULE PO SCH ×3 (06:25→22:45)
[2021-07-12] MEDS: hydrOXYzine PAMOATE 25 MG CAPSULE (FP) PO SCH ×5 (06:25→22:46)
[2021-07-12] MEDS: chlordiazePOXIDE HCL 25 MG CAPSULE PO SCH ×4 (06:25→22:46)
[2021-07-12] MEDS: NICOTINE POLACRILEX 2 MG GUM BUC PRN ×3 (06:27→22:50)
[2021-07-12] MEDS: LIDOCAINE 5% TOPICAL PATCH TP SCH (10:34)
[2021-07-12] MEDS: METHOCARBAMOL 500 MG TABLET PO PRN (10:34)
[2021-07-12] MEDS: ASPIRIN 81 MG CHEWABLE TABLETS PO SCH (10:34)
[2021-07-12] MEDS: PRENATAL VITAMINS W/ FOLIC ACID TABLET (FP) PO SCH (10:34)
[2021-07-12] MEDS: LOSARTAN POTASSIUM 25 MG TABLET PO SCH (10:35)
[2021-07-12] MEDS: metoPROLOL SUCCINATE 25 MG TAB.SR.24H (FP) PO SCH (10:36)
[2021-07-12] MEDS: ISOSORBIDE MONONITRATE 30 MG TAB.SR.24H (FP) PO SCH (10:37)
[2021-07-12 12:55] LABS: BASO % 0.7 % (0-2.0); EOS % 3.4 % (0-4.5); HEMATOCRIT 33.1 % (35.4-49); HEMOGLOBIN 11.2 GM/dL (11.7-16.9); LYMPH % 35.3 % (8-40); MCH 30.6 pg (25.7-33.7); MCHC 33.8 g/dl (32.0-35.9); MEAN CELL VOLUME 90.4 fl (80-96); MEAN PLT VOLUME 8.5 fl (7.5-11.1); MONO % 8.7 % (3.8-10.2); NEUT % 51.9 % (42.8-82.8); PLATELET COUNT 223 10^3/uL (134-434); RBC 3.66 M/mm3 (4.00-5.60); RDW 15.3 % (11.9-15.9); WHITE BLOOD COUNT 7.3 K/mm3 (4.0-10.0)
[2021-07-12 13:45] LABS: ANISOCYTOSIS 1+; MACROCYTOSIS 0
[2021-07-12 14:08] LABS: SARS-CoV-2 NAA Not Detected (Not Detected)
[2021-07-12] MEDS: ACETAMINOPHEN 325 MG TABLET (FP) PO PRN (17:36)
[2021-07-12] MEDS: LIDOCAINE PATCH REMOVAL MC SCH (22:46)
[2021-07-12] MEDS: THIAMINE HCL 100 MG TABLET (FP) PO SCH (22:46)
[2021-07-12] MEDS: QUEtiapine FUMARATE 100 MG TABLET (FP) PO SCH (22:46)
[2021-07-12] MEDS: ATORVASTATIN CA 40 MG TABLET (FP) PO SCH (22:46)
[2021-07-13] MEDS ORDERED: chlordiazePOXIDE HCL 10 MG CAPSULE PO PRN
[2021-07-13] MEDS: GABAPENTIN 300 MG CAPSULE PO SCH ×3 (07:34→22:45)
[2021-07-13] MEDS: chlordiazePOXIDE HCL 10 MG CAPSULE PO SCH ×4 (07:34→22:45)
[2021-07-13] MEDS: hydrOXYzine PAMOATE 25 MG CAPSULE (FP) PO SCH ×5 (07:34→22:45)
[2021-07-13] MEDS: METHOCARBAMOL 500 MG TABLET PO PRN (11:27)
[2021-07-13] MEDS: PRENATAL VITAMINS W/ FOLIC ACID TABLET (FP) PO SCH (11:27)
[2021-07-13] MEDS: LIDOCAINE 5% TOPICAL PATCH TP SCH (11:27)
[2021-07-13] MEDS: ASPIRIN 81 MG CHEWABLE TABLETS PO SCH (11:28)
[2021-07-13] MEDS: metoPROLOL SUCCINATE 25 MG TAB.SR.24H (FP) PO SCH (11:28)
[2021-07-13] MEDS: LOSARTAN POTASSIUM 25 MG TABLET PO SCH (11:28)
[2021-07-13] MEDS: ISOSORBIDE MONONITRATE 30 MG TAB.SR.24H (FP) PO SCH (11:29)
[2021-07-13] MEDS: NICOTINE POLACRILEX 2 MG GUM BUC PRN ×3 (11:32→20:17)
[2021-07-13] MEDS: ACETAMINOPHEN 325 MG TABLET (FP) PO PRN (17:45)
[2021-07-13] MEDS: ATORVASTATIN CA 40 MG TABLET (FP) PO SCH (22:44)
[2021-07-13] MEDS: THIAMINE HCL 100 MG TABLET (FP) PO SCH (22:45)
[2021-07-13] MEDS: QUEtiapine FUMARATE 100 MG TABLET (FP) PO SCH (22:45)
[2021-07-13] MEDS: LIDOCAINE PATCH REMOVAL MC SCH (22:47)
[2021-07-14] MEDS: GABAPENTIN 300 MG CAPSULE PO SCH ×3 (07:01→22:14)
[2021-07-14] MEDS: chlordiazePOXIDE HCL 10 MG CAPSULE PO SCH ×2 (07:01→17:54)
[2021-07-14] MEDS: hydrOXYzine PAMOATE 25 MG CAPSULE (FP) PO SCH ×5 (07:01→22:15)
[2021-07-14] MEDS: ASPIRIN 81 MG CHEWABLE TABLETS PO SCH (09:43)
[2021-07-14] MEDS: METHOCARBAMOL 500 MG TABLET PO PRN (09:43)
[2021-07-14] MEDS: PRENATAL VITAMINS W/ FOLIC ACID TABLET (FP) PO SCH (09:43)
[2021-07-14] MEDS: NICOTINE POLACRILEX 2 MG GUM BUC PRN ×2 (09:43→17:57)
[2021-07-14] MEDS: metoPROLOL SUCCINATE 25 MG TAB.SR.24H (FP) PO SCH (09:43)
[2021-07-14] MEDS: LIDOCAINE 5% TOPICAL PATCH TP SCH (09:43)
[2021-07-14] MEDS: LOSARTAN POTASSIUM 25 MG TABLET PO SCH (09:44)
[2021-07-14] MEDS: ISOSORBIDE MONONITRATE 30 MG TAB.SR.24H (FP) PO SCH (09:45)
[2021-07-14] MEDS: ACETAMINOPHEN 325 MG TABLET (FP) PO PRN (17:55)
[2021-07-14] MEDS ORDERED: QUEtiapine FUMARATE 200 MG TABLET PO SCH (22:00)
[2021-07-14] MEDS: ATORVASTATIN CA 40 MG TABLET (FP) PO SCH (22:14)
[2021-07-14] MEDS: THIAMINE HCL 100 MG TABLET (FP) PO SCH (22:15)
[2021-07-14] MEDS: LIDOCAINE PATCH REMOVAL MC SCH (22:16)
[2021-07-15] MEDS ORDERED: chlordiazePOXIDE HCL 10 MG CAPSULE PO ONE (05:00)
[2021-07-15] MEDS: hydrOXYzine PAMOATE 25 MG CAPSULE (FP) PO SCH ×4 (06:19→18:00)
[2021-07-15] MEDS: GABAPENTIN 300 MG CAPSULE PO SCH ×2 (06:21→15:09)
[2021-07-15] MEDS: NICOTINE POLACRILEX 2 MG GUM BUC PRN ×3 (06:21→18:01)
[2021-07-15] MEDS: PRENATAL VITAMINS W/ FOLIC ACID TABLET (FP) PO SCH (10:20)
[2021-07-15] MEDS: ASPIRIN 81 MG CHEWABLE TABLETS PO SCH (10:20)
[2021-07-15] MEDS: LOSARTAN POTASSIUM 25 MG TABLET PO SCH (10:21)
[2021-07-15] MEDS: metoPROLOL SUCCINATE 25 MG TAB.SR.24H (FP) PO SCH (10:21)
[2021-07-15] MEDS: ISOSORBIDE MONONITRATE 30 MG TAB.SR.24H (FP) PO SCH (10:21)
[2021-07-15] MEDS: METHOCARBAMOL 500 MG TABLET PO PRN (10:21)
[2021-07-15] MEDS: LIDOCAINE 5% TOPICAL PATCH TP SCH (10:23)
[2021-07-15 18:10] VITALS: BP 124/68; PULSE 96; TEMP 98.3
== END 2021-07-15 18:15 | disposition other institution (70) | DRG 774 ==
LOC: YASAS 12:06 → Y6N 12:39
PROVIDERS: ADMIT Allergy & Immunology; ATTEND Allergy & Immunology
PROC: HZ2ZZZZ Detoxification Services for Substance Abuse Treatment (ICD-10-PCS; principal; 2021-07-10)
DX: F10.230 Alcohol dependence with withdrawal, uncomplicated (principal); F14.20 Cocaine dependence, uncomplicated; F17.213 Nicotine dependence, cigarettes, with withdrawal; F25.9 Schizoaffective disorder, unspecified; F19.282 Other psychoactive substance dependence with psychoactive substance-induced sleep disorder; F19.24 Other psychoactive substance dependence with psychoactive substance-induced mood disorder; F43.10 Post-traumatic stress disorder, unspecified; E78.5 Hyperlipidemia, unspecified; G62.9 Polyneuropathy, unspecified; D72.829 Elevated white blood cell count, unspecified; I25.10 Atherosclerotic heart disease of native coronary artery without angina pectoris; I10 Essential (primary) hypertension; Z95.5 Presence of coronary angioplasty implant and graft; M17.0 Bilateral primary osteoarthritis of knee; R73.9 Hyperglycemia, unspecified; Z62.810 Personal history of physical and sexual abuse in childhood; Z86.19 Personal history of other infectious and parasitic diseases; Z59.00 Homelessness unspecified; Z88.8 Allergy status to other drugs, medicaments and biological substances; Z91.013 Allergy to seafood
CPT/HCPCS: 36415; 80053; 82962; 85025; 85027; 86780; C9803; U0003; U0005

== ENCOUNTER 2021-07-15 18:10 | Inpatient (IN) | payer OTHER ==
[~2021-07-15 18:10] MED LIST: LOPERAMIDE HCL 2 MG CAPSULE PO PRN; MAGNESIUM CITRATE 300 ML BOTTLE PO PRN; MAGNESIUM HYDROX 2400MG/30ML ORAL SUSPENSION 30 ML CUP PO PRN; NICOTINE 10 MG CARTRIDGE (INHALER) IH PRN; guaiFENesin 200 MG/10 ML 10 ML UNIT-DOSE CUPS PO PRN; hydrOXYzine PAMOATE 25 MG CAPSULE (FP) PO PRN
[2021-07-15] MEDS ORDERED: ATORVASTATIN CA 40 MG TABLET (FP) PO SCH (22:00)
[2021-07-15] MEDS: MELATONIN 5 MG TABLETS PO SCH (22:19)
[2021-07-15] MEDS: THIAMINE HCL 100 MG TABLET (FP) PO SCH (22:19)
[2021-07-15] MEDS: QUEtiapine FUMARATE 200 MG TABLET PO SCH (22:19)
[2021-07-15] MEDS: ATORVASTATIN CA 40 MG TABLET (FP) PO SCH (22:19)
[2021-07-15] MEDS: GABAPENTIN 300 MG CAPSULE PO SCH ×3 (22:19→22:21)
[2021-07-16] MEDS: GABAPENTIN 300 MG CAPSULE PO SCH ×3 (06:17→21:42)
[2021-07-16] MEDS: ASPIRIN 81 MG CHEWABLE TABLETS PO SCH (09:57)
[2021-07-16] MEDS: ISOSORBIDE MONONITRATE 30 MG TAB.SR.24H (FP) PO SCH (09:57)
[2021-07-16] MEDS: metoPROLOL SUCCINATE 25 MG TAB.SR.24H (FP) PO SCH (09:58)
[2021-07-16] MEDS: PRENATAL VITAMINS W/ FOLIC ACID TABLET (FP) PO SCH (09:58)
[2021-07-16] MEDS: LOSARTAN POTASSIUM 25 MG TABLET PO SCH (09:58)
[2021-07-16] MEDS: ACETAMINOPHEN 325 MG TABLET (FP) PO PRN ×2 (09:59→21:43)
[2021-07-16] MEDS: LIDOCAINE 5% TOPICAL PATCH TP SCH (13:08)
[2021-07-16] MEDS: NICOTINE POLACRILEX 2 MG GUM BUC PRN ×4 (13:08→22:19)
[2021-07-16] MEDS: THIAMINE HCL 100 MG TABLET (FP) PO SCH (21:42)
[2021-07-16] MEDS: MELATONIN 5 MG TABLETS PO SCH (21:42)
[2021-07-16] MEDS: QUEtiapine FUMARATE 200 MG TABLET PO SCH (21:42)
[2021-07-16] MEDS: ATORVASTATIN CA 40 MG TABLET (FP) PO SCH (21:43)
[2021-07-16] MEDS: LIDOCAINE PATCH REMOVAL MC SCH (21:44)
[2021-07-17] MEDS: GABAPENTIN 300 MG CAPSULE PO SCH ×3 (06:27→21:20)
[2021-07-17] MEDS: ACETAMINOPHEN 325 MG TABLET (FP) PO PRN ×3 (06:28→21:19)
[2021-07-17] MEDS: NICOTINE POLACRILEX 2 MG GUM BUC PRN ×6 (06:29→21:21)
[2021-07-17] MEDS: ASPIRIN 81 MG CHEWABLE TABLETS PO SCH (10:13)
[2021-07-17] MEDS: LOSARTAN POTASSIUM 25 MG TABLET PO SCH (10:13)
[2021-07-17] MEDS: ISOSORBIDE MONONITRATE 30 MG TAB.SR.24H (FP) PO SCH (10:14)
[2021-07-17] MEDS: metoPROLOL SUCCINATE 25 MG TAB.SR.24H (FP) PO SCH (10:14)
[2021-07-17] MEDS: LIDOCAINE 5% TOPICAL PATCH TP SCH (10:14)
[2021-07-17] MEDS: PRENATAL VITAMINS W/ FOLIC ACID TABLET (FP) PO SCH (10:15)
[2021-07-17] MEDS: MELATONIN 5 MG TABLETS PO SCH (21:18)
[2021-07-17] MEDS: THIAMINE HCL 100 MG TABLET (FP) PO SCH (21:18)
[2021-07-17] MEDS: LIDOCAINE PATCH REMOVAL MC SCH (21:20)
[2021-07-17] MEDS: ATORVASTATIN CA 40 MG TABLET (FP) PO SCH (21:20)
[2021-07-17] MEDS: QUEtiapine FUMARATE 200 MG TABLET PO SCH (21:20)
[2021-07-18] MEDS: GABAPENTIN 300 MG CAPSULE PO SCH ×3 (06:33→21:18)
[2021-07-18] MEDS: ASPIRIN 81 MG CHEWABLE TABLETS PO SCH (10:09)
[2021-07-18] MEDS: LOSARTAN POTASSIUM 25 MG TABLET PO SCH (10:09)
[2021-07-18] MEDS: ISOSORBIDE MONONITRATE 30 MG TAB.SR.24H (FP) PO SCH (10:10)
[2021-07-18] MEDS: PRENATAL VITAMINS W/ FOLIC ACID TABLET (FP) PO SCH (10:10)
[2021-07-18] MEDS: NICOTINE POLACRILEX 2 MG GUM BUC PRN ×3 (10:10→21:19)
[2021-07-18] MEDS: LIDOCAINE 5% TOPICAL PATCH TP SCH (10:10)
[2021-07-18] MEDS: metoPROLOL SUCCINATE 25 MG TAB.SR.24H (FP) PO SCH (10:10)
[2021-07-18] MEDS: ACETAMINOPHEN 325 MG TABLET (FP) PO PRN ×2 (10:11→21:17)
[2021-07-18] MEDS: MELATONIN 5 MG TABLETS PO SCH (21:17)
[2021-07-18] MEDS: THIAMINE HCL 100 MG TABLET (FP) PO SCH (21:17)
[2021-07-18] MEDS: ATORVASTATIN CA 40 MG TABLET (FP) PO SCH (21:18)
[2021-07-18] MEDS: QUEtiapine FUMARATE 200 MG TABLET PO SCH (21:18)
[2021-07-18] MEDS: LIDOCAINE PATCH REMOVAL MC SCH (21:38)
[2021-07-19] MEDS: NICOTINE POLACRILEX 2 MG GUM BUC PRN ×4 (06:38→18:00)
[2021-07-19] MEDS: GABAPENTIN 300 MG CAPSULE PO SCH ×3 (06:38→21:36)
[2021-07-19] MEDS: ACETAMINOPHEN 325 MG TABLET (FP) PO PRN ×3 (06:39→21:37)
[2021-07-19] MEDS ORDERED: MODERNA COVID-19 VACC,MRNA/PF 50 MCG/0.25 ML EACH IM ONE (10:00)
[2021-07-19] MEDS: LIDOCAINE 5% TOPICAL PATCH TP SCH (10:14)
[2021-07-19] MEDS: metoPROLOL SUCCINATE 25 MG TAB.SR.24H (FP) PO SCH (10:14)
[2021-07-19] MEDS: ASPIRIN 81 MG CHEWABLE TABLETS PO SCH (10:14)
[2021-07-19] MEDS: PRENATAL VITAMINS W/ FOLIC ACID TABLET (FP) PO SCH (10:15)
[2021-07-19] MEDS: ISOSORBIDE MONONITRATE 30 MG TAB.SR.24H (FP) PO SCH (10:15)
[2021-07-19] MEDS: LOSARTAN POTASSIUM 25 MG TABLET PO SCH (10:16)
[2021-07-19 14:08] LABS: SARS-CoV-2 NAA Not Detected (Not Detected)
[2021-07-19] MEDS: THIAMINE HCL 100 MG TABLET (FP) PO SCH (21:36)
[2021-07-19] MEDS: ATORVASTATIN CA 40 MG TABLET (FP) PO SCH (21:36)
[2021-07-19] MEDS: QUEtiapine FUMARATE 200 MG TABLET PO SCH (21:36)
[2021-07-19] MEDS: LIDOCAINE PATCH REMOVAL MC SCH (21:36)
[2021-07-19] MEDS: MELATONIN 5 MG TABLETS PO SCH (21:37)
[2021-07-20] MEDS: GABAPENTIN 300 MG CAPSULE PO SCH ×3 (06:41→21:15)
[2021-07-20] MEDS: NICOTINE POLACRILEX 2 MG GUM BUC PRN ×4 (06:42→17:03)
[2021-07-20] MEDS: ACETAMINOPHEN 325 MG TABLET (FP) PO PRN ×2 (06:42→21:17)
[2021-07-20] MEDS: LIDOCAINE 5% TOPICAL PATCH TP SCH (10:15)
[2021-07-20] MEDS: ISOSORBIDE MONONITRATE 30 MG TAB.SR.24H (FP) PO SCH (10:15)
[2021-07-20] MEDS: PRENATAL VITAMINS W/ FOLIC ACID TABLET (FP) PO SCH (10:15)
[2021-07-20] MEDS: LOSARTAN POTASSIUM 25 MG TABLET PO SCH (10:15)
[2021-07-20] MEDS: ASPIRIN 81 MG CHEWABLE TABLETS PO SCH (10:15)
[2021-07-20] MEDS: metoPROLOL SUCCINATE 25 MG TAB.SR.24H (FP) PO SCH (10:16)
[2021-07-20] MEDS: THIAMINE HCL 100 MG TABLET (FP) PO SCH (21:15)
[2021-07-20] MEDS: ATORVASTATIN CA 40 MG TABLET (FP) PO SCH (21:16)
[2021-07-20] MEDS: QUEtiapine FUMARATE 200 MG TABLET PO SCH (21:16)
[2021-07-20] MEDS: MELATONIN 5 MG TABLETS PO SCH (21:16)
[2021-07-20] MEDS: LIDOCAINE PATCH REMOVAL MC SCH (21:16)
[2021-07-21] MEDS: GABAPENTIN 300 MG CAPSULE PO SCH ×3 (06:57→21:39)
[2021-07-21] MEDS: ACETAMINOPHEN 325 MG TABLET (FP) PO PRN ×2 (06:57→21:40)
[2021-07-21] MEDS: NICOTINE POLACRILEX 2 MG GUM BUC PRN ×6 (07:00→21:41)
[2021-07-21] MEDS: metoPROLOL SUCCINATE 25 MG TAB.SR.24H (FP) PO SCH (09:45)
[2021-07-21] MEDS: LOSARTAN POTASSIUM 25 MG TABLET PO SCH (09:45)
[2021-07-21] MEDS: ASPIRIN 81 MG CHEWABLE TABLETS PO SCH (09:45)
[2021-07-21] MEDS: ISOSORBIDE MONONITRATE 30 MG TAB.SR.24H (FP) PO SCH (09:45)
[2021-07-21] MEDS: LIDOCAINE 5% TOPICAL PATCH TP SCH (09:46)
[2021-07-21] MEDS: PRENATAL VITAMINS W/ FOLIC ACID TABLET (FP) PO SCH (09:46)
[2021-07-21] MEDS: MELATONIN 5 MG TABLETS PO SCH (21:39)
[2021-07-21] MEDS: QUEtiapine FUMARATE 200 MG TABLET PO SCH (21:39)
[2021-07-21] MEDS: ATORVASTATIN CA 40 MG TABLET (FP) PO SCH (21:39)
[2021-07-21] MEDS: THIAMINE HCL 100 MG TABLET (FP) PO SCH (21:39)
[2021-07-21] MEDS: LIDOCAINE PATCH REMOVAL MC SCH (21:39)
[2021-07-22] MEDS: GABAPENTIN 300 MG CAPSULE PO SCH ×3 (06:51→21:12)
[2021-07-22] MEDS: ACETAMINOPHEN 325 MG TABLET (FP) PO PRN ×3 (06:52→21:13)
[2021-07-22] MEDS: LOSARTAN POTASSIUM 25 MG TABLET PO SCH (09:46)
[2021-07-22] MEDS: ASPIRIN 81 MG CHEWABLE TABLETS PO SCH (09:46)
[2021-07-22] MEDS: ISOSORBIDE MONONITRATE 30 MG TAB.SR.24H (FP) PO SCH (09:46)
[2021-07-22] MEDS: metoPROLOL SUCCINATE 25 MG TAB.SR.24H (FP) PO SCH (09:46)
[2021-07-22] MEDS: LIDOCAINE 5% TOPICAL PATCH TP SCH (09:46)
[2021-07-22] MEDS: PRENATAL VITAMINS W/ FOLIC ACID TABLET (FP) PO SCH (09:48)
[2021-07-22] MEDS: NICOTINE POLACRILEX 2 MG GUM BUC PRN ×3 (12:01→17:11)
[2021-07-22] MEDS: MELATONIN 5 MG TABLETS PO SCH (21:11)
[2021-07-22] MEDS: ATORVASTATIN CA 40 MG TABLET (FP) PO SCH (21:12)
[2021-07-22] MEDS: QUEtiapine FUMARATE 200 MG TABLET PO SCH (21:12)
[2021-07-22] MEDS: LIDOCAINE PATCH REMOVAL MC SCH (21:12)
[2021-07-22] MEDS: THIAMINE HCL 100 MG TABLET (FP) PO SCH (21:14)
[2021-07-23] MEDS: NICOTINE POLACRILEX 2 MG GUM BUC PRN ×5 (06:31→21:14)
[2021-07-23] MEDS: GABAPENTIN 300 MG CAPSULE PO SCH ×3 (06:31→21:15)
[2021-07-23] MEDS: ACETAMINOPHEN 325 MG TABLET (FP) PO PRN ×2 (06:32→21:15)
[2021-07-23] MEDS: PRENATAL VITAMINS W/ FOLIC ACID TABLET (FP) PO SCH (10:11)
[2021-07-23] MEDS: LIDOCAINE 5% TOPICAL PATCH TP SCH (10:11)
[2021-07-23] MEDS: ASPIRIN 81 MG CHEWABLE TABLETS PO SCH (10:11)
[2021-07-23] MEDS: LOSARTAN POTASSIUM 25 MG TABLET PO SCH (10:12)
[2021-07-23] MEDS: metoPROLOL SUCCINATE 25 MG TAB.SR.24H (FP) PO SCH (10:13)
[2021-07-23] MEDS: ISOSORBIDE MONONITRATE 30 MG TAB.SR.24H (FP) PO SCH (10:15)
[2021-07-23] MEDS: IBUPROFEN 400 MG TABLET (FP) PO PRN (10:17)
[2021-07-23] MEDS: LIDOCAINE HCL 5% TOP OINTMENT 50 GM TUBE TP SCH (16:56)
[2021-07-23] MEDS: LIDOCAINE PATCH REMOVAL MC SCH (21:13)
[2021-07-23] MEDS: MELATONIN 5 MG TABLETS PO SCH (21:14)
[2021-07-23] MEDS: THIAMINE HCL 100 MG TABLET (FP) PO SCH (21:15)
[2021-07-23] MEDS: ATORVASTATIN CA 40 MG TABLET (FP) PO SCH (21:15)
[2021-07-23] MEDS: QUEtiapine FUMARATE 200 MG TABLET PO SCH (21:15)
[2021-07-24] MEDS: ACETAMINOPHEN 325 MG TABLET (FP) PO PRN ×2 (06:44→13:11)
[2021-07-24] MEDS: GABAPENTIN 300 MG CAPSULE PO SCH ×3 (06:44→21:36)
[2021-07-24] MEDS: NICOTINE POLACRILEX 2 MG GUM BUC PRN ×6 (06:44→21:37)
[2021-07-24] MEDS: IBUPROFEN 400 MG TABLET (FP) PO PRN (10:11)
[2021-07-24] MEDS: ASPIRIN 81 MG CHEWABLE TABLETS PO SCH (10:12)
[2021-07-24] MEDS: ISOSORBIDE MONONITRATE 30 MG TAB.SR.24H (FP) PO SCH (10:12)
[2021-07-24] MEDS: LOSARTAN POTASSIUM 25 MG TABLET PO SCH (10:12)
[2021-07-24] MEDS: LIDOCAINE 5% TOPICAL PATCH TP SCH (10:13)
[2021-07-24] MEDS: metoPROLOL SUCCINATE 25 MG TAB.SR.24H (FP) PO SCH (10:13)
[2021-07-24] MEDS: PRENATAL VITAMINS W/ FOLIC ACID TABLET (FP) PO SCH (10:13)
[2021-07-24] MEDS: LIDOCAINE HCL 5% TOP OINTMENT 50 GM TUBE TP SCH (10:13)
[2021-07-24] MEDS: LIDOCAINE PATCH REMOVAL MC SCH (21:35)
[2021-07-24] MEDS: THIAMINE HCL 100 MG TABLET (FP) PO SCH (21:36)
[2021-07-24] MEDS: QUEtiapine FUMARATE 200 MG TABLET PO SCH (21:36)
[2021-07-24] MEDS: MELATONIN 5 MG TABLETS PO SCH (21:36)
[2021-07-24] MEDS: ATORVASTATIN CA 40 MG TABLET (FP) PO SCH (21:36)
[2021-07-25] MEDS: NICOTINE POLACRILEX 2 MG GUM BUC PRN ×5 (06:22→17:20)
[2021-07-25] MEDS: ACETAMINOPHEN 325 MG TABLET (FP) PO PRN ×2 (06:22→21:13)
[2021-07-25] MEDS: GABAPENTIN 300 MG CAPSULE PO SCH ×3 (06:22→21:12)
[2021-07-25] MEDS: ASPIRIN 81 MG CHEWABLE TABLETS PO SCH (09:28)
[2021-07-25] MEDS: metoPROLOL SUCCINATE 25 MG TAB.SR.24H (FP) PO SCH (09:29)
[2021-07-25] MEDS: LOSARTAN POTASSIUM 25 MG TABLET PO SCH (09:29)
[2021-07-25] MEDS: LIDOCAINE HCL 5% TOP OINTMENT 50 GM TUBE TP SCH (09:29)
[2021-07-25] MEDS: ISOSORBIDE MONONITRATE 30 MG TAB.SR.24H (FP) PO SCH (09:29)
[2021-07-25] MEDS: PRENATAL VITAMINS W/ FOLIC ACID TABLET (FP) PO SCH (09:29)
[2021-07-25] MEDS: LIDOCAINE 5% TOPICAL PATCH TP SCH (09:29)
[2021-07-25] MEDS: MAG HYDROX/AL HYDROX/SIMETH 30 ML UNIT-DOSE CUP PO PRN ×2 (09:30→21:12)
[2021-07-25] MEDS: METHOCARBAMOL 500 MG TABLET PO PRN (10:30)
[2021-07-25] MEDS: IBUPROFEN 400 MG TABLET (FP) PO PRN (14:09)
[2021-07-25] MEDS: QUEtiapine FUMARATE 200 MG TABLET PO SCH (21:12)
[2021-07-25] MEDS: MELATONIN 5 MG TABLETS PO SCH (21:12)
[2021-07-25] MEDS: THIAMINE HCL 100 MG TABLET (FP) PO SCH (21:12)
[2021-07-25] MEDS: ATORVASTATIN CA 40 MG TABLET (FP) PO SCH (21:13)
[2021-07-25] MEDS: LIDOCAINE PATCH REMOVAL MC SCH (21:13)
[2021-07-26] MEDS: GABAPENTIN 300 MG CAPSULE PO SCH ×3 (06:37→21:49)
[2021-07-26] MEDS: MAG HYDROX/AL HYDROX/SIMETH 30 ML UNIT-DOSE CUP PO PRN (06:37)
[2021-07-26] MEDS: NICOTINE POLACRILEX 2 MG GUM BUC PRN ×5 (06:37→21:50)
[2021-07-26] MEDS: ACETAMINOPHEN 325 MG TABLET (FP) PO PRN ×2 (06:38→21:49)
[2021-07-26] MEDS: LIDOCAINE 5% TOPICAL PATCH TP SCH (09:23)
[2021-07-26] MEDS: ASPIRIN 81 MG CHEWABLE TABLETS PO SCH (09:23)
[2021-07-26] MEDS: PRENATAL VITAMINS W/ FOLIC ACID TABLET (FP) PO SCH (09:23)
[2021-07-26] MEDS: ISOSORBIDE MONONITRATE 30 MG TAB.SR.24H (FP) PO SCH (09:25)
[2021-07-26] MEDS: metoPROLOL SUCCINATE 25 MG TAB.SR.24H (FP) PO SCH (09:25)
[2021-07-26] MEDS: LOSARTAN POTASSIUM 25 MG TABLET PO SCH (09:25)
[2021-07-26] MEDS: IBUPROFEN 400 MG TABLET (FP) PO PRN (14:16)
[2021-07-26] MEDS: LIDOCAINE PATCH REMOVAL MC SCH (21:48)
[2021-07-26] MEDS: ATORVASTATIN CA 40 MG TABLET (FP) PO SCH (21:49)
[2021-07-26] MEDS: THIAMINE HCL 100 MG TABLET (FP) PO SCH (21:49)
[2021-07-26] MEDS: QUEtiapine FUMARATE 200 MG TABLET PO SCH (21:49)
[2021-07-26] MEDS: MELATONIN 5 MG TABLETS PO SCH (21:49)
[2021-07-26] MEDS: METHOCARBAMOL 500 MG TABLET PO PRN (21:50)
[2021-07-27] MEDS: ACETAMINOPHEN 325 MG TABLET (FP) PO PRN ×2 (07:04→21:29)
[2021-07-27] MEDS: GABAPENTIN 300 MG CAPSULE PO SCH ×3 (07:04→21:28)
[2021-07-27] MEDS: ISOSORBIDE MONONITRATE 30 MG TAB.SR.24H (FP) PO SCH (10:05)
[2021-07-27] MEDS: ASPIRIN 81 MG CHEWABLE TABLETS PO SCH (10:05)
[2021-07-27] MEDS: LOSARTAN POTASSIUM 25 MG TABLET PO SCH (10:05)
[2021-07-27] MEDS: metoPROLOL SUCCINATE 25 MG TAB.SR.24H (FP) PO SCH (10:06)
[2021-07-27] MEDS: NICOTINE POLACRILEX 2 MG GUM BUC PRN ×5 (10:06→21:30)
[2021-07-27] MEDS: PRENATAL VITAMINS W/ FOLIC ACID TABLET (FP) PO SCH (10:06)
[2021-07-27] MEDS: LIDOCAINE 5% TOPICAL PATCH TP SCH (10:06)
[2021-07-27] MEDS: METHOCARBAMOL 500 MG TABLET PO PRN ×2 (10:07→21:28)
[2021-07-27] MEDS: MELATONIN 5 MG TABLETS PO SCH (21:28)
[2021-07-27] MEDS: ATORVASTATIN CA 40 MG TABLET (FP) PO SCH (21:28)
[2021-07-27] MEDS: THIAMINE HCL 100 MG TABLET (FP) PO SCH (21:28)
[2021-07-27] MEDS: QUEtiapine FUMARATE 200 MG TABLET PO SCH (21:28)
[2021-07-27] MEDS: LIDOCAINE PATCH REMOVAL MC SCH (21:29)
[2021-07-28] MEDS: GABAPENTIN 300 MG CAPSULE PO SCH ×3 (06:59→21:09)
[2021-07-28] MEDS: ACETAMINOPHEN 325 MG TABLET (FP) PO PRN ×2 (06:59→21:09)
[2021-07-28] MEDS: NICOTINE POLACRILEX 2 MG GUM BUC PRN ×6 (07:00→21:10)
[2021-07-28] MEDS: METHOCARBAMOL 500 MG TABLET PO PRN (09:54)
[2021-07-28] MEDS: ASPIRIN 81 MG CHEWABLE TABLETS PO SCH (09:54)
[2021-07-28] MEDS: IBUPROFEN 400 MG TABLET (FP) PO PRN (09:54)
[2021-07-28] MEDS: LOSARTAN POTASSIUM 25 MG TABLET PO SCH (09:54)
[2021-07-28] MEDS: PRENATAL VITAMINS W/ FOLIC ACID TABLET (FP) PO SCH (09:55)
[2021-07-28] MEDS: metoPROLOL SUCCINATE 25 MG TAB.SR.24H (FP) PO SCH (09:55)
[2021-07-28] MEDS: ISOSORBIDE MONONITRATE 30 MG TAB.SR.24H (FP) PO SCH (09:55)
[2021-07-28] MEDS: LIDOCAINE 5% TOPICAL PATCH TP SCH (09:55)
[2021-07-28] MEDS: MELATONIN 5 MG TABLETS PO SCH (21:08)
[2021-07-28] MEDS: THIAMINE HCL 100 MG TABLET (FP) PO SCH (21:09)
[2021-07-28] MEDS: QUEtiapine FUMARATE 200 MG TABLET PO SCH (21:09)
[2021-07-28] MEDS: ATORVASTATIN CA 40 MG TABLET (FP) PO SCH (21:09)
[2021-07-28] MEDS: LIDOCAINE PATCH REMOVAL MC SCH (21:56)
[2021-07-29] MEDS: ACETAMINOPHEN 325 MG TABLET (FP) PO PRN ×2 (06:47→21:43)
[2021-07-29] MEDS: GABAPENTIN 300 MG CAPSULE PO SCH ×3 (06:47→21:43)
[2021-07-29] MEDS: NICOTINE POLACRILEX 2 MG GUM BUC PRN ×5 (06:49→17:44)
[2021-07-29] MEDS: LIDOCAINE 5% TOPICAL PATCH TP SCH (10:07)
[2021-07-29] MEDS: ASPIRIN 81 MG CHEWABLE TABLETS PO SCH (10:08)
[2021-07-29] MEDS: METHOCARBAMOL 500 MG TABLET PO PRN (10:08)
[2021-07-29] MEDS: LOSARTAN POTASSIUM 25 MG TABLET PO SCH (10:08)
[2021-07-29] MEDS: ISOSORBIDE MONONITRATE 30 MG TAB.SR.24H (FP) PO SCH (10:09)
[2021-07-29] MEDS: IBUPROFEN 400 MG TABLET (FP) PO PRN (10:09)
[2021-07-29] MEDS: metoPROLOL SUCCINATE 25 MG TAB.SR.24H (FP) PO SCH (10:09)
[2021-07-29] MEDS: PRENATAL VITAMINS W/ FOLIC ACID TABLET (FP) PO SCH (10:09)
[2021-07-29] MEDS: THIAMINE HCL 100 MG TABLET (FP) PO SCH (21:42)
[2021-07-29] MEDS: LIDOCAINE PATCH REMOVAL MC SCH (21:43)
[2021-07-29] MEDS: QUEtiapine FUMARATE 200 MG TABLET PO SCH (21:43)
[2021-07-29] MEDS: ATORVASTATIN CA 40 MG TABLET (FP) PO SCH (21:43)
[2021-07-29] MEDS: MELATONIN 5 MG TABLETS PO SCH (21:44)
[2021-07-30] MEDS: ACETAMINOPHEN 325 MG TABLET (FP) PO PRN ×2 (06:28→12:54)
[2021-07-30] MEDS: NICOTINE POLACRILEX 2 MG GUM BUC PRN ×4 (06:31→21:43)
[2021-07-30] MEDS: GABAPENTIN 300 MG CAPSULE PO SCH ×3 (06:52→21:42)
[2021-07-30] MEDS: ASPIRIN 81 MG CHEWABLE TABLETS PO SCH (09:59)
[2021-07-30] MEDS: METHOCARBAMOL 500 MG TABLET PO PRN (10:00)
[2021-07-30] MEDS: IBUPROFEN 400 MG TABLET (FP) PO PRN ×2 (10:02→21:41)
[2021-07-30] MEDS: LIDOCAINE 5% TOPICAL PATCH TP SCH (10:02)
[2021-07-30] MEDS: PRENATAL VITAMINS W/ FOLIC ACID TABLET (FP) PO SCH (10:03)
[2021-07-30] MEDS: ISOSORBIDE MONONITRATE 30 MG TAB.SR.24H (FP) PO SCH (10:37)
[2021-07-30] MEDS: metoPROLOL SUCCINATE 25 MG TAB.SR.24H (FP) PO SCH (10:37)
[2021-07-30] MEDS: LOSARTAN POTASSIUM 25 MG TABLET PO SCH (10:37)
[2021-07-30] MEDS: MAG HYDROX/AL HYDROX/SIMETH 30 ML UNIT-DOSE CUP PO PRN (12:51)
[2021-07-30] MEDS ORDERED: ISOSORBIDE MONONITRATE 30 MG TAB.SR.24H (FP) PO ONE (13:40)
[2021-07-30] MEDS ORDERED: LOSARTAN POTASSIUM 25 MG TABLET PO ONE (13:45)
[2021-07-30] MEDS ORDERED: metoPROLOL SUCCINATE 25 MG TAB.SR.24H (FP) PO ONE (16:02)
[2021-07-30] MEDS: THIAMINE HCL 100 MG TABLET (FP) PO SCH (21:41)
[2021-07-30] MEDS: MELATONIN 5 MG TABLETS PO SCH (21:41)
[2021-07-30] MEDS: QUEtiapine FUMARATE 200 MG TABLET PO SCH (21:42)
[2021-07-30] MEDS: ATORVASTATIN CA 40 MG TABLET (FP) PO SCH (21:42)
[2021-07-30] MEDS: LIDOCAINE PATCH REMOVAL MC SCH (21:43)
[2021-07-31] MEDS: GABAPENTIN 300 MG CAPSULE PO SCH ×3 (06:38→21:42)
[2021-07-31] MEDS: ACETAMINOPHEN 325 MG TABLET (FP) PO PRN ×2 (06:38→21:41)
[2021-07-31] MEDS: NICOTINE POLACRILEX 2 MG GUM BUC PRN ×6 (06:39→21:44)
[2021-07-31] MEDS: PRENATAL VITAMINS W/ FOLIC ACID TABLET (FP) PO SCH (10:09)
[2021-07-31] MEDS: ASPIRIN 81 MG CHEWABLE TABLETS PO SCH (10:09)
[2021-07-31] MEDS: metoPROLOL SUCCINATE 25 MG TAB.SR.24H (FP) PO SCH (10:10)
[2021-07-31] MEDS: LOSARTAN POTASSIUM 25 MG TABLET PO SCH (10:11)
[2021-07-31] MEDS: METHOCARBAMOL 500 MG TABLET PO PRN (10:12)
[2021-07-31] MEDS: ISOSORBIDE MONONITRATE 30 MG TAB.SR.24H (FP) PO SCH (10:12)
[2021-07-31] MEDS: IBUPROFEN 400 MG TABLET (FP) PO PRN ×2 (10:12→17:22)
[2021-07-31] MEDS: LIDOCAINE 5% TOPICAL PATCH TP SCH (10:14)
[2021-07-31] MEDS: THIAMINE HCL 100 MG TABLET (FP) PO SCH (21:42)
[2021-07-31] MEDS: QUEtiapine FUMARATE 200 MG TABLET PO SCH (21:42)
[2021-07-31] MEDS: LIDOCAINE PATCH REMOVAL MC SCH (21:42)
[2021-07-31] MEDS: ATORVASTATIN CA 40 MG TABLET (FP) PO SCH (21:42)
[2021-07-31] MEDS: MELATONIN 5 MG TABLETS PO SCH (21:42)
[2021-08-01] MEDS: ACETAMINOPHEN 325 MG TABLET (FP) PO PRN (06:33)
[2021-08-01] MEDS: GABAPENTIN 300 MG CAPSULE PO SCH ×3 (06:33→21:12)
[2021-08-01] MEDS: NICOTINE POLACRILEX 2 MG GUM BUC PRN ×5 (06:34→17:11)
[2021-08-01] MEDS: METHOCARBAMOL 500 MG TABLET PO PRN (09:56)
[2021-08-01] MEDS: PRENATAL VITAMINS W/ FOLIC ACID TABLET (FP) PO SCH (09:56)
[2021-08-01] MEDS: IBUPROFEN 400 MG TABLET (FP) PO PRN (09:56)
[2021-08-01] MEDS: ASPIRIN 81 MG CHEWABLE TABLETS PO SCH (09:57)
[2021-08-01] MEDS: ISOSORBIDE MONONITRATE 30 MG TAB.SR.24H (FP) PO SCH (09:58)
[2021-08-01] MEDS: LOSARTAN POTASSIUM 25 MG TABLET PO SCH (09:58)
[2021-08-01] MEDS: LIDOCAINE 5% TOPICAL PATCH TP SCH (09:59)
[2021-08-01] MEDS: metoPROLOL SUCCINATE 25 MG TAB.SR.24H (FP) PO SCH (10:00)
[2021-08-01] MEDS: ATORVASTATIN CA 40 MG TABLET (FP) PO SCH (21:12)
[2021-08-01] MEDS: QUEtiapine FUMARATE 200 MG TABLET PO SCH (21:12)
[2021-08-01] MEDS: THIAMINE HCL 100 MG TABLET (FP) PO SCH (21:12)
[2021-08-01] MEDS: LIDOCAINE PATCH REMOVAL MC SCH (21:13)
[2021-08-01] MEDS: MELATONIN 5 MG TABLETS PO SCH (21:13)
[2021-08-02] MEDS: ACETAMINOPHEN 325 MG TABLET (FP) PO PRN ×2 (06:32→21:11)
[2021-08-02] MEDS: GABAPENTIN 300 MG CAPSULE PO SCH ×3 (06:32→21:11)
[2021-08-02] MEDS: NICOTINE POLACRILEX 2 MG GUM BUC PRN ×5 (06:33→17:23)
[2021-08-02] MEDS: PRENATAL VITAMINS W/ FOLIC ACID TABLET (FP) PO SCH (10:07)
[2021-08-02] MEDS: metoPROLOL SUCCINATE 25 MG TAB.SR.24H (FP) PO SCH (10:08)
[2021-08-02] MEDS: ASPIRIN 81 MG CHEWABLE TABLETS PO SCH (10:08)
[2021-08-02] MEDS: LOSARTAN POTASSIUM 25 MG TABLET PO SCH (10:08)
[2021-08-02] MEDS: LIDOCAINE 5% TOPICAL PATCH TP SCH (10:09)
[2021-08-02] MEDS: ISOSORBIDE MONONITRATE 30 MG TAB.SR.24H (FP) PO SCH (10:09)
[2021-08-02] MEDS: METHOCARBAMOL 500 MG TABLET PO PRN (10:09)
[2021-08-02] MEDS: IBUPROFEN 400 MG TABLET (FP) PO PRN (10:10)
[2021-08-02] MEDS: QUEtiapine FUMARATE 200 MG TABLET PO SCH (21:11)
[2021-08-02] MEDS: ATORVASTATIN CA 40 MG TABLET (FP) PO SCH (21:11)
[2021-08-02] MEDS: LIDOCAINE PATCH REMOVAL MC SCH (21:12)
[2021-08-02] MEDS: MELATONIN 5 MG TABLETS PO SCH (21:12)
[2021-08-02] MEDS: THIAMINE HCL 100 MG TABLET (FP) PO SCH (21:12)
[2021-08-03] MEDS: GABAPENTIN 300 MG CAPSULE PO SCH ×3 (07:46→21:23)
[2021-08-03] MEDS: NICOTINE POLACRILEX 2 MG GUM BUC PRN ×6 (07:47→21:25)
[2021-08-03] MEDS: ACETAMINOPHEN 325 MG TABLET (FP) PO PRN ×2 (07:47→21:23)
[2021-08-03] MEDS: LIDOCAINE 5% TOPICAL PATCH TP SCH (09:43)
[2021-08-03] MEDS: metoPROLOL SUCCINATE 25 MG TAB.SR.24H (FP) PO SCH (09:44)
[2021-08-03] MEDS: LOSARTAN POTASSIUM 25 MG TABLET PO SCH (09:45)
[2021-08-03] MEDS: ISOSORBIDE MONONITRATE 30 MG TAB.SR.24H (FP) PO SCH (09:45)
[2021-08-03] MEDS: ASPIRIN 81 MG CHEWABLE TABLETS PO SCH (09:45)
[2021-08-03] MEDS: METHOCARBAMOL 500 MG TABLET PO PRN (09:46)
[2021-08-03] MEDS: PRENATAL VITAMINS W/ FOLIC ACID TABLET (FP) PO SCH (09:46)
[2021-08-03] MEDS: IBUPROFEN 400 MG TABLET (FP) PO PRN (09:46)
[2021-08-03] MEDS: QUEtiapine FUMARATE 200 MG TABLET PO SCH (21:22)
[2021-08-03] MEDS: THIAMINE HCL 100 MG TABLET (FP) PO SCH (21:22)
[2021-08-03] MEDS: ATORVASTATIN CA 40 MG TABLET (FP) PO SCH (21:22)
[2021-08-03] MEDS: LIDOCAINE PATCH REMOVAL MC SCH (21:23)
[2021-08-03] MEDS: MELATONIN 5 MG TABLETS PO SCH (21:23)
[2021-08-04] MEDS: GABAPENTIN 300 MG CAPSULE PO SCH ×3 (06:38→21:16)
[2021-08-04] MEDS: NICOTINE POLACRILEX 2 MG GUM BUC PRN ×5 (06:39→21:17)
[2021-08-04] MEDS: ASPIRIN 81 MG CHEWABLE TABLETS PO SCH (10:02)
[2021-08-04] MEDS: PRENATAL VITAMINS W/ FOLIC ACID TABLET (FP) PO SCH (10:02)
[2021-08-04] MEDS: ISOSORBIDE MONONITRATE 30 MG TAB.SR.24H (FP) PO SCH (10:02)
[2021-08-04] MEDS: METHOCARBAMOL 500 MG TABLET PO PRN (10:02)
[2021-08-04] MEDS: metoPROLOL SUCCINATE 25 MG TAB.SR.24H (FP) PO SCH (10:02)
[2021-08-04] MEDS: ACETAMINOPHEN 325 MG TABLET (FP) PO PRN ×2 (10:03→21:15)
[2021-08-04] MEDS: LIDOCAINE 5% TOPICAL PATCH TP SCH (10:03)
[2021-08-04] MEDS: LOSARTAN POTASSIUM 25 MG TABLET PO SCH (10:03)
[2021-08-04] MEDS: LIDOCAINE PATCH REMOVAL MC SCH (21:14)
[2021-08-04] MEDS: QUEtiapine FUMARATE 200 MG TABLET PO SCH (21:16)
[2021-08-04] MEDS: THIAMINE HCL 100 MG TABLET (FP) PO SCH (21:16)
[2021-08-04] MEDS: MELATONIN 5 MG TABLETS PO SCH (21:16)
[2021-08-04] MEDS: ATORVASTATIN CA 40 MG TABLET (FP) PO SCH (21:16)
[2021-08-05] MEDS: ACETAMINOPHEN 325 MG TABLET (FP) PO PRN ×2 (06:29→21:33)
[2021-08-05] MEDS: GABAPENTIN 300 MG CAPSULE PO SCH ×3 (06:29→21:34)
[2021-08-05] MEDS: NICOTINE POLACRILEX 2 MG GUM BUC PRN ×6 (06:31→21:35)
[2021-08-05] MEDS: LOSARTAN POTASSIUM 25 MG TABLET PO SCH (10:03)
[2021-08-05] MEDS: ASPIRIN 81 MG CHEWABLE TABLETS PO SCH (10:03)
[2021-08-05] MEDS: ISOSORBIDE MONONITRATE 30 MG TAB.SR.24H (FP) PO SCH (10:03)
[2021-08-05] MEDS: LIDOCAINE 5% TOPICAL PATCH TP SCH (10:03)
[2021-08-05] MEDS: metoPROLOL SUCCINATE 25 MG TAB.SR.24H (FP) PO SCH (10:04)
[2021-08-05] MEDS: IBUPROFEN 400 MG TABLET (FP) PO PRN (10:04)
[2021-08-05] MEDS: METHOCARBAMOL 500 MG TABLET PO PRN (10:04)
[2021-08-05] MEDS: PRENATAL VITAMINS W/ FOLIC ACID TABLET (FP) PO SCH (10:04)
[2021-08-05] MEDS: HYDROCORTISONE 2.5% TOPICAL CREAM 30 GM TUBE TP SCH ×2 (14:49→21:34)
[2021-08-05] MEDS: THIAMINE HCL 100 MG TABLET (FP) PO SCH (21:33)
[2021-08-05] MEDS: QUEtiapine FUMARATE 200 MG TABLET PO SCH (21:33)
[2021-08-05] MEDS: MELATONIN 5 MG TABLETS PO SCH (21:33)
[2021-08-05] MEDS: LIDOCAINE PATCH REMOVAL MC SCH (21:34)
[2021-08-05] MEDS: ATORVASTATIN CA 40 MG TABLET (FP) PO SCH (21:34)
[2021-08-06] MEDS: GABAPENTIN 300 MG CAPSULE PO SCH ×3 (06:28→21:36)
[2021-08-06] MEDS: ACETAMINOPHEN 325 MG TABLET (FP) PO PRN (06:28)
[2021-08-06] MEDS: NICOTINE POLACRILEX 2 MG GUM BUC PRN ×4 (06:29→17:45)
[2021-08-06] MEDS: METHOCARBAMOL 500 MG TABLET PO PRN (10:13)
[2021-08-06] MEDS: ISOSORBIDE MONONITRATE 30 MG TAB.SR.24H (FP) PO SCH (10:13)
[2021-08-06] MEDS: ASPIRIN 81 MG CHEWABLE TABLETS PO SCH (10:13)
[2021-08-06] MEDS: LIDOCAINE 5% TOPICAL PATCH TP SCH (10:13)
[2021-08-06] MEDS: HYDROCORTISONE 2.5% TOPICAL CREAM 30 GM TUBE TP SCH ×2 (10:14→21:37)
[2021-08-06] MEDS: PRENATAL VITAMINS W/ FOLIC ACID TABLET (FP) PO SCH (10:14)
[2021-08-06] MEDS: metoPROLOL SUCCINATE 25 MG TAB.SR.24H (FP) PO SCH (10:14)
[2021-08-06] MEDS: LOSARTAN POTASSIUM 25 MG TABLET PO SCH (10:14)
[2021-08-06] MEDS: IBUPROFEN 400 MG TABLET (FP) PO PRN (10:15)
[2021-08-06] MEDS: THIAMINE HCL 100 MG TABLET (FP) PO SCH (21:36)
[2021-08-06] MEDS: ATORVASTATIN CA 40 MG TABLET (FP) PO SCH (21:36)
[2021-08-06] MEDS: LIDOCAINE PATCH REMOVAL MC SCH (21:36)
[2021-08-06] MEDS: MELATONIN 5 MG TABLETS PO SCH (21:36)
[2021-08-06] MEDS: QUEtiapine FUMARATE 200 MG TABLET PO SCH (21:37)
[2021-08-07] MEDS: ACETAMINOPHEN 325 MG TABLET (FP) PO PRN ×2 (06:43→21:40)
[2021-08-07] MEDS: GABAPENTIN 300 MG CAPSULE PO SCH ×3 (06:43→21:40)
[2021-08-07] MEDS: NICOTINE POLACRILEX 2 MG GUM BUC PRN ×5 (06:44→17:59)
[2021-08-07] MEDS: HYDROCORTISONE 2.5% TOPICAL CREAM 30 GM TUBE TP SCH ×2 (10:12→21:57)
[2021-08-07] MEDS: ASPIRIN 81 MG CHEWABLE TABLETS PO SCH (10:12)
[2021-08-07] MEDS: LOSARTAN POTASSIUM 25 MG TABLET PO SCH (10:12)
[2021-08-07] MEDS: ISOSORBIDE MONONITRATE 30 MG TAB.SR.24H (FP) PO SCH (10:13)
[2021-08-07] MEDS: metoPROLOL SUCCINATE 25 MG TAB.SR.24H (FP) PO SCH (10:13)
[2021-08-07] MEDS: LIDOCAINE 5% TOPICAL PATCH TP SCH (10:13)
[2021-08-07] MEDS: PRENATAL VITAMINS W/ FOLIC ACID TABLET (FP) PO SCH (10:13)
[2021-08-07] MEDS: METHOCARBAMOL 500 MG TABLET PO PRN (10:14)
[2021-08-07] MEDS: IBUPROFEN 400 MG TABLET (FP) PO PRN (10:15)
[2021-08-07] MEDS: THIAMINE HCL 100 MG TABLET (FP) PO SCH (21:39)
[2021-08-07] MEDS: LIDOCAINE PATCH REMOVAL MC SCH (21:39)
[2021-08-07] MEDS: ATORVASTATIN CA 40 MG TABLET (FP) PO SCH (21:39)
[2021-08-07] MEDS: QUEtiapine FUMARATE 200 MG TABLET PO SCH (21:40)
[2021-08-07] MEDS: MELATONIN 5 MG TABLETS PO SCH (21:40)
[2021-08-08] MEDS: GABAPENTIN 300 MG CAPSULE PO SCH ×3 (06:40→21:45)
[2021-08-08] MEDS: NICOTINE POLACRILEX 2 MG GUM BUC PRN ×6 (06:40→21:49)
[2021-08-08] MEDS: ACETAMINOPHEN 325 MG TABLET (FP) PO PRN (06:40)
[2021-08-08] MEDS: METHOCARBAMOL 500 MG TABLET PO PRN (09:58)
[2021-08-08] MEDS: PRENATAL VITAMINS W/ FOLIC ACID TABLET (FP) PO SCH (09:58)
[2021-08-08] MEDS: LOSARTAN POTASSIUM 25 MG TABLET PO SCH (09:58)
[2021-08-08] MEDS: ISOSORBIDE MONONITRATE 30 MG TAB.SR.24H (FP) PO SCH (09:58)
[2021-08-08] MEDS: ASPIRIN 81 MG CHEWABLE TABLETS PO SCH (09:58)
[2021-08-08] MEDS: HYDROCORTISONE 2.5% TOPICAL CREAM 30 GM TUBE TP SCH ×2 (09:59→21:46)
[2021-08-08] MEDS: metoPROLOL SUCCINATE 25 MG TAB.SR.24H (FP) PO SCH (09:59)
[2021-08-08] MEDS: IBUPROFEN 400 MG TABLET (FP) PO PRN ×2 (09:59→21:47)
[2021-08-08] MEDS: LIDOCAINE 5% TOPICAL PATCH TP SCH (09:59)
[2021-08-08] MEDS: THIAMINE HCL 100 MG TABLET (FP) PO SCH (21:46)
[2021-08-08] MEDS: LIDOCAINE PATCH REMOVAL MC SCH (21:46)
[2021-08-08] MEDS: QUEtiapine FUMARATE 200 MG TABLET PO SCH (21:46)
[2021-08-08] MEDS: MELATONIN 5 MG TABLETS PO SCH (21:46)
[2021-08-08] MEDS: ATORVASTATIN CA 40 MG TABLET (FP) PO SCH (21:46)
[2021-08-09] MEDS: ACETAMINOPHEN 325 MG TABLET (FP) PO PRN ×3 (06:43→21:19)
[2021-08-09] MEDS: GABAPENTIN 300 MG CAPSULE PO SCH ×3 (06:44→21:19)
[2021-08-09] MEDS: NICOTINE POLACRILEX 2 MG GUM BUC PRN ×5 (06:45→21:21)
[2021-08-09] MEDS: ASPIRIN 81 MG CHEWABLE TABLETS PO SCH (09:58)
[2021-08-09] MEDS: metoPROLOL SUCCINATE 25 MG TAB.SR.24H (FP) PO SCH (09:58)
[2021-08-09] MEDS: LOSARTAN POTASSIUM 25 MG TABLET PO SCH (09:58)
[2021-08-09] MEDS: PRENATAL VITAMINS W/ FOLIC ACID TABLET (FP) PO SCH (09:58)
[2021-08-09] MEDS: LIDOCAINE 5% TOPICAL PATCH TP SCH (09:58)
[2021-08-09] MEDS: IBUPROFEN 400 MG TABLET (FP) PO PRN (10:00)
[2021-08-09] MEDS: ISOSORBIDE MONONITRATE 30 MG TAB.SR.24H (FP) PO SCH (10:00)
[2021-08-09] MEDS: HYDROCORTISONE 2.5% TOPICAL CREAM 30 GM TUBE TP SCH ×2 (12:19→21:20)
[2021-08-09] MEDS: METHOCARBAMOL 500 MG TABLET PO PRN (21:19)
[2021-08-09] MEDS: THIAMINE HCL 100 MG TABLET (FP) PO SCH (21:19)
[2021-08-09] MEDS: ATORVASTATIN CA 40 MG TABLET (FP) PO SCH (21:19)
[2021-08-09] MEDS: MELATONIN 5 MG TABLETS PO SCH (21:19)
[2021-08-09] MEDS: QUEtiapine FUMARATE 200 MG TABLET PO SCH (21:19)
[2021-08-09] MEDS: LIDOCAINE PATCH REMOVAL MC SCH (21:20)
[2021-08-10] MEDS: GABAPENTIN 300 MG CAPSULE PO SCH ×3 (06:23→21:27)
[2021-08-10] MEDS: ACETAMINOPHEN 325 MG TABLET (FP) PO PRN ×2 (06:23→21:27)
[2021-08-10] MEDS: NICOTINE POLACRILEX 2 MG GUM BUC PRN ×6 (06:24→21:29)
[2021-08-10] MEDS: HYDROCORTISONE 2.5% TOPICAL CREAM 30 GM TUBE TP SCH ×2 (10:11→21:29)
[2021-08-10] MEDS: LOSARTAN POTASSIUM 25 MG TABLET PO SCH (10:11)
[2021-08-10] MEDS: ASPIRIN 81 MG CHEWABLE TABLETS PO SCH (10:11)
[2021-08-10] MEDS: ISOSORBIDE MONONITRATE 30 MG TAB.SR.24H (FP) PO SCH (10:11)
[2021-08-10] MEDS: LIDOCAINE 5% TOPICAL PATCH TP SCH (10:12)
[2021-08-10] MEDS: PRENATAL VITAMINS W/ FOLIC ACID TABLET (FP) PO SCH (10:12)
[2021-08-10] MEDS: metoPROLOL SUCCINATE 25 MG TAB.SR.24H (FP) PO SCH (10:13)
[2021-08-10] MEDS: METHOCARBAMOL 500 MG TABLET PO PRN ×2 (10:13→21:29)
[2021-08-10] MEDS: IBUPROFEN 400 MG TABLET (FP) PO PRN (10:13)
[2021-08-10] MEDS: THIAMINE HCL 100 MG TABLET (FP) PO SCH (21:27)
[2021-08-10] MEDS: MELATONIN 5 MG TABLETS PO SCH (21:27)
[2021-08-10] MEDS: ATORVASTATIN CA 40 MG TABLET (FP) PO SCH (21:27)
[2021-08-10] MEDS: QUEtiapine FUMARATE 200 MG TABLET PO SCH (21:27)
[2021-08-10] MEDS: LIDOCAINE PATCH REMOVAL MC SCH (21:29)
[2021-08-11] MEDS: GABAPENTIN 300 MG CAPSULE PO SCH ×3 (06:28→21:11)
[2021-08-11] MEDS: ACETAMINOPHEN 325 MG TABLET (FP) PO PRN (06:29)
[2021-08-11] MEDS: NICOTINE POLACRILEX 2 MG GUM BUC PRN ×4 (06:30→21:12)
[2021-08-11] MEDS: LIDOCAINE 5% TOPICAL PATCH TP SCH (10:10)
[2021-08-11] MEDS: ASPIRIN 81 MG CHEWABLE TABLETS PO SCH (10:11)
[2021-08-11] MEDS: IBUPROFEN 400 MG TABLET (FP) PO PRN ×2 (10:12→21:11)
[2021-08-11] MEDS: HYDROCORTISONE 2.5% TOPICAL CREAM 30 GM TUBE TP SCH ×2 (10:12→21:12)
[2021-08-11] MEDS: METHOCARBAMOL 500 MG TABLET PO PRN ×2 (10:12→21:11)
[2021-08-11] MEDS: LOSARTAN POTASSIUM 25 MG TABLET PO SCH (10:13)
[2021-08-11] MEDS: metoPROLOL SUCCINATE 25 MG TAB.SR.24H (FP) PO SCH (10:13)
[2021-08-11] MEDS: PRENATAL VITAMINS W/ FOLIC ACID TABLET (FP) PO SCH (10:13)
[2021-08-11] MEDS: ISOSORBIDE MONONITRATE 30 MG TAB.SR.24H (FP) PO SCH (10:13)
[2021-08-11] MEDS: MELATONIN 5 MG TABLETS PO SCH (21:10)
[2021-08-11] MEDS: THIAMINE HCL 100 MG TABLET (FP) PO SCH (21:10)
[2021-08-11] MEDS: ATORVASTATIN CA 40 MG TABLET (FP) PO SCH (21:11)
[2021-08-11] MEDS: QUEtiapine FUMARATE 200 MG TABLET PO SCH (21:11)
[2021-08-11] MEDS: LIDOCAINE PATCH REMOVAL MC SCH (21:12)
[2021-08-12 06:32] VITALS: TEMP 97.3
[2021-08-12] MEDS: GABAPENTIN 300 MG CAPSULE PO SCH (07:14)
[2021-08-12] MEDS: NICOTINE POLACRILEX 2 MG GUM BUC PRN (07:14)
[2021-08-12] MEDS: ACETAMINOPHEN 325 MG TABLET (FP) PO PRN (07:15)
[2021-08-12 08:58] VITALS: BP 114/67; PULSE 70
[2021-08-12] MEDS: HYDROCORTISONE 2.5% TOPICAL CREAM 30 GM TUBE TP SCH (09:05)
[2021-08-12] MEDS: LOSARTAN POTASSIUM 25 MG TABLET PO SCH (09:05)
[2021-08-12] MEDS: ISOSORBIDE MONONITRATE 30 MG TAB.SR.24H (FP) PO SCH (09:05)
[2021-08-12] MEDS: LIDOCAINE 5% TOPICAL PATCH TP SCH (09:06)
[2021-08-12] MEDS: PRENATAL VITAMINS W/ FOLIC ACID TABLET (FP) PO SCH (09:06)
[2021-08-12] MEDS: metoPROLOL SUCCINATE 25 MG TAB.SR.24H (FP) PO SCH (09:06)
[2021-08-12] MEDS: ASPIRIN 81 MG CHEWABLE TABLETS PO SCH (09:08)
== END 2021-08-12 09:18 | disposition home or self-care (01) | DRG 772 ==
LOC: YASAS 18:10 → Y3E 18:11
PROVIDERS: ADMIT Allergy & Immunology; ATTEND Allergy & Immunology
PROC: HZ42ZZZ Group Counseling for Substance Abuse Treatment, Cognitive-Behavioral (ICD-10-PCS; principal; 2021-07-15)
DX: F10.20 Alcohol dependence, uncomplicated (principal); F17.210 Nicotine dependence, cigarettes, uncomplicated; E78.5 Hyperlipidemia, unspecified; I10 Essential (primary) hypertension; K64.9 Unspecified hemorrhoids; Z95.5 Presence of coronary angioplasty implant and graft; Z88.8 Allergy status to other drugs, medicaments and biological substances; Z91.014 Allergy to mammalian meats; Z91.013 Allergy to seafood
CPT/HCPCS: 0013A; 91301; C9803-CS; U0003; U0005

== ENCOUNTER 2022-03-13 05:52 | Observation (INO) | payer OTHER ==
[2022-03-13 06:00] VITALS: BMI 29.5
[2022-03-13] MEDS ORDERED: chlordiazePOXIDE HCL 25 MG CAPSULE PO ONE (08:10)
[2022-03-13] MEDS ORDERED: ASPIRIN 81 MG CHEWABLE TABLETS PO ONE (08:10)
[2022-03-13] MEDS ORDERED: ASPIRIN 81 MG CHEWABLE TABLETS ONE (08:17)
[2022-03-13] MEDS ORDERED: chlordiazePOXIDE HCL 25 MG CAPSULE ONE ×3 (08:17→18:32)
[2022-03-13 08:50] LABS: BASO % 1.2 % (0-2.0); EOS % 2.1 % (0-4.5); HEMATOCRIT 38.2 % (35.4-49); HEMOGLOBIN 12.9 GM/dL (11.7-16.9); LYMPH % 29.5 % (8-40); MCH 30.5 pg (25.7-33.7); MCHC 33.7 g/dl (32.0-35.9); MEAN CELL VOLUME 90.4 fl (80-96); MEAN PLT VOLUME 9.1 fl (7.5-11.1); MONO % 8.8 % (3.8-10.2); NEUT % 58.4 % (42.8-82.8); PLATELET COUNT 186 10^3/uL (134-434); RBC 4.23 M/mm3 (4.00-5.60); RDW 14.8 % (11.9-15.9); WHITE BLOOD COUNT 6.6 K/mm3 (4.0-10.0)
[2022-03-13 09:04] LABS: INR 1.02 (0.83-1.09); PROTHROMBIN TIME (PATIENT) 11.7 SEC (9.7-13.0)
[2022-03-13 09:10] LABS: ALBUMIN 3.5 g/dl (3.4-5.0); BLOOD UREA NITROGEN 21.8 mg/dL (7-18); CALCIUM 8.2 mg/dL (8.5-10.1)
[2022-03-13 09:13] LABS: CREATININE 0.9 mg/dL (0.55-1.3)
[2022-03-13 09:15] LABS: BILIRUBIN,TOTAL 0.2 mg/dL (0.2-1); TOT PROT 6.2 g/dl (6.4-8.2)
[2022-03-13] MEDS ORDERED: chlordiazePOXIDE HCL 25 MG CAPSULE PO PRN (12:58)
[2022-03-13] MEDS ORDERED: FOLIC ACID INJECTION - 1 MG, THIAMINE HCL 100 MG, MULTIVIT INJECTION ADULT 10 ML in SOD... IVPB ONE (12:59)
[2022-03-13] MEDS: chlordiazePOXIDE HCL 25 MG CAPSULE PO SCH ×2 (14:56→18:25)
[2022-03-13 15:04] LABS: MAGNESIUM 2.2 mg/dL (1.8-2.4)
[2022-03-13 15:07] LABS: PHOSPHOROUS 3.2 mg/dL (2.5-4.9)
[2022-03-13 17:34] VITALS: RESP 16; TEMP 98.5
[2022-03-13] MEDS ORDERED: ATORVASTATIN CA 40 MG TABLET (FP) PO SCH (22:00)
[2022-03-13] MEDS ORDERED: QUEtiapine FUMARATE 100 MG TABLET (FP) PO SCH (22:00)
[2022-03-13] MEDS ORDERED: ATORVASTATIN CA 80 MG TABLET (FP) PO ONE (22:00)
[2022-03-13] MEDS ORDERED: GABAPENTIN 300 MG CAPSULE PO SCH (22:00)
[2022-03-14] MEDS ORDERED: TICAGRELOR 90 MG TABLET PO ONE ×2 (00:33→11:03)
[2022-03-14] MEDS ORDERED: GABAPENTIN 300 MG CAPSULE ONE (00:34)
[2022-03-14] MEDS ORDERED: ATORVASTATIN CA 80 MG TABLET (FP) ONE (00:34)
[2022-03-14] MEDS ORDERED: chlordiazePOXIDE HCL 25 MG CAPSULE ONE ×3 (00:34→13:42)
[2022-03-14] MEDS ORDERED: QUEtiapine FUMARATE 100 MG TABLET (FP) ONE (00:35)
[2022-03-14] MEDS: chlordiazePOXIDE HCL 25 MG CAPSULE PO SCH ×3 (00:38→13:46)
[2022-03-14] MEDS: TICAGRELOR 90 MG TABLET PO SCH ×2 (00:38→11:14)
[2022-03-14 07:29] LABS: BASO % 0.7 % (0-2.0); EOS % 2.5 % (0-4.5); HEMATOCRIT 37.5 % (35.4-49); HEMOGLOBIN 12.8 GM/dL (11.7-16.9); LYMPH % 31.7 % (8-40); MCH 30.9 pg (25.7-33.7); MCHC 34.1 g/dl (32.0-35.9); MEAN CELL VOLUME 90.8 fl (80-96); MEAN PLT VOLUME 9.2 fl (7.5-11.1); MONO % 10.9 % (3.8-10.2); NEUT % 54.2 % (42.8-82.8); PLATELET COUNT 173 10^3/uL (134-434); RBC 4.13 M/mm3 (4.00-5.60); RDW 15.3 % (11.9-15.9); WHITE BLOOD COUNT 6.2 K/mm3 (4.0-10.0)
[2022-03-14 07:48] LABS: ALBUMIN 3.2 g/dl (3.4-5.0); CALCIUM 8.8 mg/dL (8.5-10.1)
[2022-03-14 07:50] LABS: BLOOD UREA NITROGEN 20.4 mg/dL (7-18)
[2022-03-14 07:54] LABS: BILIRUBIN,TOTAL 0.3 mg/dL (0.2-1); TOT PROT 5.8 g/dl (6.4-8.2)
[2022-03-14] MEDS ORDERED: ISOSORBIDE MONONITRATE 30 MG TAB.SR.24H (FP) PO SCH (10:00)
[2022-03-14] MEDS ORDERED: THIAMINE HCL 100 MG TABLET (FP) PO SCH (10:00)
[2022-03-14] MEDS ORDERED: ASPIRIN 81 MG CHEWABLE TABLETS PO SCH (10:00)
[2022-03-14] MEDS ORDERED: LOSARTAN POTASSIUM 25 MG TABLET PO SCH (10:00)
[2022-03-14] MEDS ORDERED: FOLIC ACID 1 MG TABLET (FP) PO SCH (10:00)
[2022-03-14] MEDS ORDERED: THIAMINE HCL 100 MG TABLET (FP) ONE (11:03)
[2022-03-14] MEDS ORDERED: LOSARTAN POTASSIUM 25 MG TABLET ONE (11:03)
[2022-03-14] MEDS ORDERED: ASPIRIN 81 MG CHEWABLE TABLETS ONE (11:03)
[2022-03-14] MEDS ORDERED: FOLIC ACID 1 MG TABLET (FP) ONE (11:03)
[2022-03-14] MEDS ORDERED: ISOSORBIDE MONONITRATE 30 MG TAB.SR.24H (FP) PO ONE (11:04)
[2022-03-14 11:16] VITALS: BP 121/73; PULSE 82
[2022-03-14] MEDS ORDERED: NICOTINE POLACRILEX 2 MG GUM BUC PRN (15:10)
[2022-03-14] MEDS ORDERED: ATORVASTATIN CA 40 MG TABLET (FP) PO SCH (22:00)
[2022-03-15] MEDS ORDERED: chlordiazePOXIDE HCL 25 MG CAPSULE PO SCH (05:00)
[2022-03-16] MEDS ORDERED: chlordiazePOXIDE HCL 10 MG CAPSULE PO PRN
[2022-03-16] MEDS ORDERED: chlordiazePOXIDE HCL 10 MG CAPSULE PO SCH (05:00)
[2022-03-17] MEDS ORDERED: chlordiazePOXIDE HCL 10 MG CAPSULE PO SCH (05:00)
[2022-03-18] MEDS ORDERED: chlordiazePOXIDE HCL 10 MG CAPSULE PO ONE (05:00)
== END 2022-03-14 16:45 | disposition other institution (70) ==
LOC: JER 05:52 → JERBED 11:08
PROVIDERS: ADMIT Internal Medicine; ATTEND Internal Medicine
PROC: 3E033GC Introduction of Other Therapeutic Substance into Peripheral Vein, Percutaneous Approach (ICD-10-PCS; principal; 2022-03-13)
DX: I25.10 Atherosclerotic heart disease of native coronary artery without angina pectoris (principal); I11.9 Hypertensive heart disease without heart failure; E78.5 Hyperlipidemia, unspecified; Z91.013 Allergy to seafood; Z88.8 Allergy status to other drugs, medicaments and biological substances; F10.10 Alcohol abuse, uncomplicated; F17.210 Nicotine dependence, cigarettes, uncomplicated; Z13.89 Encounter for screening for other disorder
CPT/HCPCS: 0241U-QW; 36415; 71045-TC-FY; 80053; 82550; 82553; 83735; 84100; 84443; 84484; 85025; 85610; 85730; 93005; 93010; 93306-TC; 96365; 97116-GP; 97161-GP; 99285-25; G0378